=== PATIENT | female | born 1995 ===

== ENCOUNTER 2016-07-14 21:31 | Observation (INO) | payer MEDICAID, OTHER ==
[2016-07-14 21:42] VITALS: BMI 28.3
[2016-07-14] MEDS ORDERED: Sodium Chloride 0.9% 1,000 ML IV STA (21:57)
[2016-07-14 22:04] LABS: ADD MANUAL DIFF? NO
[2016-07-14 22:11] LABS: BASO # 0.06 K/mm3 (0.0-2.0); BASO % 0.5 % (0.0-3.0); EOS # 0.2 (0.0-0.7); EOS % 1.4 % (1.5-5.0); GRAN # 8.37 (1.4-6.5); GRAN % 62.9 % (50.0-68.0); LYMPH # 3.7 (1.2-3.4); LYMPH % 27.9 % (22.0-35.0); MEAN CELL VOLUME 86.4 fL (80.0-105.0); MEAN CORPUSCULAR HGB CONC 34.7 g/dl (31.0-37.0); MEAN PLATELET VOLUME 11.6 fl (7.0-11.0); MONO % 7.3 % (1.0-6.0); PLATELET COUNT 194 10^3/uL (120.0-450.0); RED CELL DISTRIBUTION WIDTH 13.1 % (11.5-14.5); WHITE BLOOD COUNT 13.3 10^3/ul (4.5-11.0)
[2016-07-14 22:17] LABS: ALB/GLOB RATIO 1.1 (1.1-1.8); ALKALINE PHOSPHATASE 52 U/L (38-133); ALT/SGPT 52 U/L (7-56); AST/SGOT 38 U/L (15-39); BILIRUBIN,TOTAL 0.5 mg/dL (0.2-1.3); BLOOD UREA NITROGEN 15 mg/dL (7-21); CARBON DIOXIDE 24 mmol/L (21-33); CHLORIDE 105 mmol/L (98-107); GFR AFRICAN-AMERICAN > 60; GLUCOSE,RANDOM 100 mg/dL (70-110); LIPASE 160 U/L (23-300); POTASSIUM 3.5 mmol/L (3.6-5.0); SODIUM 138 mmol/L (132-148); TOTAL PROTEIN 7.5 g/dL (5.8-8.3)
[2016-07-14 22:18] LABS: INR 0.97 (0.93-1.08); PARTIAL THROMBOPLASTIN TIME 26.1 Seconds (23.7-30.8)
--- NOTE | 2016-07-14 22:18 | ED PDOC ---
Arrival/HPI - General Chief Complaint: Syncope Time Seen by Provider: 07/14/16 21:38 Historian: Patient, Partner - History of Present Illness Narrative History of Present Illness (Text): 07/14/16 22:11 Alma Johns is a 20 year old female, with a history of asthma, presents to the emergency department for evaluation following a syncopal episode prior to arrival. States [place] was in the park when she vomited and passed out while walking to the car. Patient fell down on grass and denies any trauma due to fall. Patient states she had abdominal pain throughout the day which was associated with 4 bouts of vomiting. Also complains of a headache. States she experienced similar symptoms about 3 years prior, but was not evaluated at that time. Denies fever, chills, chest pain, difficulty breathing, back pain, neck pain, urinary symptoms, or any other complaints at this time. Time/Duration: Prior to Arrival Symptom Onset: Sudden Symptom Course: Improving Activities at Onset: Light Context: Other (park ) Past Medical History - Provider Review Nursing Documentation Reviewed: Yes - Past History Past History: No Previous - Infectious Disease Hx of Infectious Diseases: None - Tetanus Immunization Tetanus Immunization: Unknown - Pulmonary Hx Asthma: Yes - Neurological Hx Syncope: Yes - Psychiatric Hx Depression: No Hx Emotional Abuse: No Hx Physical Abuse: No Hx Substance Use: No - Past Surgical History Past Surgical History: No Previous - Anesthesia Hx Anesthesia: No - Suicidal Assessment Feels Threatened In Home Enviroment: No Family/Social History - Physician Review Nursing Documentation Reviewed: Yes Family/Social History: No Known Family HX Smoking Status: Never Smoked Hx Alcohol Use: No Hx Substance Use: No Hx Substance Use Treatment: No Allergies/Home Meds Allergies/Adverse Reactions: Allergies No Known Allergies Allergy (Verified 07/14/16 21:47) Review of Systems - Physician Review All systems were reviewed & negative as marked: Yes - Review of Systems Constitutional: Normal. absent: Fatigue, Fevers Respiratory: Normal. absent: SOB, Cough Cardiovascular: Syncope. absent: Chest Pain Gastrointestinal: Abdominal Pain, Nausea, Vomiting. absent: Diarrhea Neurological: Headache Psychiatric: Normal Physical Exam Vital Signs Reviewed: Yes Vital Signs Temp Pulse Resp BP Pulse Ox 07/15/16 04:00 80 17 105/73 100 07/15/16 03:00 80 16 96/57 L 98 07/15/16 02:00 74 16 100/54 L 99 07/15/16 00:00 98.4 F 88 18 114/70 100 07/14/16 21:54 98.9 F 07/14/16 21:42 83 17 129/85 98 Temperature: Afebrile Blood Pressure: Normal Pulse: Regular Respiratory Rate: Normal Appearance: Positive for: Well-Appearing, Non-Toxic, Comfortable Pain Distress: None Mental Status: Positive for: Alert and Oriented X 3 - Systems Exam Head: Present: Atraumatic, Normocephalic Pupils: Present: PERRL Conjunctiva: Present: Normal Respiratory/Chest: Present: Clear to Auscultation, Good Air Exchange. No: Respiratory Distress, Accessory Muscle Use Cardiovascular: Present: Regular Rate and Rhythm, Normal S1, S2. No: Murmurs Abdomen: Present: Tenderness, Normal Bowel Sounds. No: Distention, Peritoneal Signs, Rebound, Guarding Upper Extremity: Present: Normal Inspection. No: Cyanosis, Edema Lower Extremity: Present: Normal Inspection. No: Edema Neurological: Present: GCS=15, CN II-XII Intact, Speech Normal, Motor Func Grossly Intact, Normal Sensory Function Skin: Present: Warm, Dry, Normal Color. No: Rashes Psychiatric: Present: Alert, Oriented x 3, Normal Insight, Normal Concentration Medical Decision Making ED Course and Treatment: 07/14/16 22:19 Impression: A 20 year old female who presents to the emergency department following a syncopal episode prior to arrival. Patient also complains of abdominal pain. Plan: -- Labs, lipase -- IV fluids -- Zofran -- HCG -- Urinalysis -- Reassess and disposition Progress Notes: EKG interpreted by me: NSR @84 bpm. Normal [place]. Normal Interval. 07/15/16 00:03 EXAM: CT Head Without Intravenous Contrast FINDINGS: Brain: No acute intracranial hemorrhage. No significant white matter disease. No edema. Ventricles: No significant ventriculomegaly. Bones: No acute displaced fracture. Sinuses: Mucoperiosteal thickening within the bilateral ethmoid sinuses. Mastoid air cells: Unremarkable as visualized. No mastoid effusion. IMPRESSION: No acute intracranial hemorrhage, or suspicious mass effect. Inflammatory sinus disease. 07/15/16 01:59 EXAM: CT Abdomen and Pelvis With Intravenous Contrast FINDINGS: Lower thorax: The bilateral lung bases are clear. ABDOMEN: Liver: No acute findings. Gallbladder and bile ducts: The gallbladder is decompressed. No calcified stones. No significant intra- or extrahepatic biliary ductal dilation. Pancreas: Enhances homogeneously. No ductal dilation. No discrete mass. Spleen: No acute findings. Adrenals: No acute findings. Kidneys and ureters: No acute findings. No hydronephrosis or renal calculi. No discrete solid mass. PELVIS: Bladder: No acute findings. Reproductive: An involuting 2.5 cm cyst is identified within the right ovary, with trace surrounding free fluid. Appendix: The appendix is of normal-caliber, and proximally contains punctate foci of air. A small amount of inflammatory changes identified within the right lower quadrant, adjacent to a normal appendix. ABDOMEN and PELVIS: Stomach and bowel: No obstruction. No mucosal thickening. Peritoneum: No significant fluid collection. No free air. Lymph nodes: No pathologically enlarged lymph nodes. Vasculature: Unremarkable. Bones: No acute fracture. IMPRESSION: Trace inflammatory change within the right lower quadrant, adjacent to a normal caliber appendix. Involuting 2.5 cm right ovarian cyst, for which dedicated ultrasound may be performed for confirmation 07/15/16 03:46 Case discussed with grace Qureshi md, who is aware and agrees with the plan to admit patient to [facility] for abdominal pain. Accepts patient under hospitalist service. - Lab Interpretations Lab Results: 07/14/16 21:55 07/14/16 21:55 Lab Results 07/14/16 22:25: Urine Color Yellow, Urine Appearance Clear, Urine pH 6.5, Ur Specific [facility] 1.020, Urine Protein Trace H, Urine Glucose (UA) Negative, Urine Ketones Negative, Urine Blood Negative, Urine Nitrate Negative, Urine Bilirubin Negative, Urine Urobilinogen 1.0 H, Ur Leukocyte Esterase Negative, Urine RBC 0 - 2, Urine WBC Negative, Ur Epithelial Cells 1 - 3, Urine Bacteria Small, Urine HCG, Qual Negative 07/14/16 21:55: Sodium 138, Potassium 3.5 L, Chloride 105, Carbon Dioxide 24, Anion Gap 13, BUN 15, Creatinine 0.7, Est GFR ( Amer) > 60, Est GFR (Non- Af Amer) > 60, Random Glucose 100, Calcium 9.0, Total Bilirubin 0.5, AST 38, ALT 52, Alkaline Phosphatase 52, Total Protein 7.5, Albumin 3.9, Globulin 3.6, Albumin/Globulin Ratio 1.1, Lipase 160 07/14/16 21:55: PT 10.5, INR 0.97, APTT 26.1 07/14/16 21:55: WBC 13.3 H, RBC 4.40, Hgb 13.2, Hct 38.0, MCV 86.4, MCH 30.0, MCHC 34.7, RDW 13.1, Plt Count 194, MPV 11.6 H, Gran % 62.9, Lymph % (Auto) 27.9 , [place] % (Auto) 7.3 H, Eos % (Auto) 1.4 L, Baso % (Auto) 0.5, Gran # 8.37 H, Lymph # 3.7 H, [place] # 1.0 H, Eos # 0.2, Baso # 0.06 I have reviewed the lab results: Yes - RAD Interpretation Radiology Orders: 07/14/16 22:36 HEAD W/O CONTRAST [CT] Stat 07/14/16 22:38 ABD & PELVIS IV CONTRAST ONLY [CT] Stat 07/14/16 23:57 TRANSVAGINAL [US] Stat Senior Management Consultant: Radiologist - Medication Orders Current Medication Orders: Acetaminophen (Tylenol 325mg Tab) 650 mg PO Q6 PRN PRN Reason: Pain, Mild (1-3) Last Admin: 07/15/16 15:10 Dose: 650 mg Re-Assess: CASH Pain/Vitals Document 07/15/16 16:10 EP (Rec: 07/15/16 16:34 EP [id number]) Pain Reassessment Is This A Pain ReAssessment? Yes Sleep Is patient sleeping during reassessment? No Presence of Pain Presence of Pain No Enoxaparin Sodium (Lovenox) 40 mg SC DAILY LATONYA PRN Reason: Protocol Last Admin: 07/16/16 10:16 Dose: 40 mg Famotidine (Pepcid) 20 mg PO BID [facility] Last Admin: 07/16/16 10:16 Dose: 20 mg Ceftriaxone Sodium (Rocephin 1 Gram Ivpb) 1 gm in 100 mls @ 100 mls/hr IVPB DAILY [facility] PRN Reason: Protocol Last Admin: 07/16/16 10:17 Dose: 100 mls/hr Sodium Chloride (Sodium Chloride 0.9%) 1,000 mls @ 125 mls/hr IV .Q8H [facility] Last Admin: 07/16/16 10:34 Dose: 125 mls/hr Doxycycline Hyclate 100 mg/ (Sodium Chloride) 100 mls @ 100 mls/hr IVPB Q12 LATONYA PRN Reason: Protocol Last Admin: 07/16/16 12:15 Dose: 100 mls/hr Ibuprofen (Motrin Tab) 400 mg PO Q6 PRN PRN Reason: Fever >100.4 F Last Admin: 07/15/16 21:21 Dose: 400 mg Re-Assess: [facility] Pain/Vitals Document 07/15/16 22:21 MJ (Rec: 07/16/16 08:04 [id number]) Pain Reassessment Is This A Pain ReAssessment? No Sleep Is patient sleeping during reassessment? Yes Ketorolac Tromethamine (Toradol) 30 mg IVP Q6H [facility] Stop: 07/17/16 00:46 Last Admin: 07/16/16 14:14 Dose: 30 mg Re-Assess: [facility] Pain Assessment Document 07/16/16 15:14 NB (Rec: 07/16/16 16:48 NB [id number]) Pain Reassessment Is this a pain reassessment? Yes Sleep Is patient sleeping during reassessment? No Presence of Pain Presence of Pain Yes Pain Scale Used Pain Scale Used Numeric Location Left, Right or Bilateral Right Upper or Lower Lower Pain Location Body Site Abdomen Description Description Constant Intensity of Pain at present 10 Pain Behavior Facial Grimacing Aggravating Factors Changing Position Alleviating Factors/Management Medication Techniques Alleviating Factors Medication Lorazepam (Ativan) 0.5 mg IVP Q6H PRN; Protocol PRN Reason: Anxiety Ondansetron HCl (Zofran Inj) 4 mg IVP Q4 [facility] Last Admin: 07/16/16 21:01 Dose: 4 mg Discontinued Medications Doxycycline Hyclate (Doryx) 100 mg PO Q12 LATONYA PRN Reason: Protocol Last Admin: 07/15/16 10:16 Dose: Not Given Non-Admin Reason: Patient Refused Sodium Chloride (Sodium Chloride 0.9%) 1,000 mls @ 100 mls/hr IV .Q10H STA Stop: 07/15/16 07:56 Last Admin: 07/14/16 22:01 Dose: 100 mls/hr Sodium Chloride (Sodium Chloride 0.9%) 1,000 mls @ 110 mls/hr IV .Q9H6M STA Stop: 07/15/16 07:02 Last Admin: 07/15/16 06:55 Dose: 110 mls/hr Iohexol (Omnipaque 350 100 Ml) Confirm Administered Dose 350 mg .ROUTE .STK-MED ONE Stop: 07/14/16 22:53 Ketorolac Tromethamine (Toradol) 30 mg IVP ONCE ONE Stop: 07/14/16 23:55 Last Admin: 07/14/16 23:56 Dose: 30 mg Ketorolac Tromethamine (Toradol) Confirm Administered Dose 30 mg .ROUTE .STK- MED ONE Stop: 07/14/16 23:58 Last Admin: 07/14/16 23:59 Dose: Morphine Sulfate (Morphine) 4 mg IVP Q4 PRN PRN Reason: Pain, moderate (4-7) Last Admin: 07/15/16 04:48 Dose: 4 mg Re-Assess: MAR Pain Assessment Document 07/15/16 05:48 STOCP (Rec: 07/15/16 06:55 [id number] Pain Reassessment Is this a pain reassessment? Yes Sleep Is patient sleeping during reassessment? No Presence of Pain Presence of Pain No Ondansetron HCl (Zofran Inj) 4 mg IVP STAT STA Stop: 07/14/16 21:59 Last Admin: 07/14/16 22:33 Dose: 4 mg Ondansetron HCl (Zofran Inj) 4 mg IVP STAT STA Stop: 07/15/16 00:01 Last Admin: 07/15/16 00:05 Dose: 4 mg Ondansetron HCl (Zofran Inj) 4 mg IVP Q6 PRN PRN Reason: Nausea/Vomiting Last Admin: 07/15/16 05:20 Dose: 4 mg Ondansetron HCl (Zofran Inj) 4 mg IVP Q4 PRN PRN Reason: Nausea/Vomiting Last Admin: 07/16/16 12:46 Dose: 4 mg Potassium Chloride (K-Dur 20 Meq Er Tab) 20 meq PO ONCE ONE Stop: 07/15/16 03:25 Last Admin: 07/15/16 03:47 Dose: 20 meq - Scribe Statement The provider has reviewed the documentation as recorded by the Janet Hall Provider Attestation: All medical record entries made by the Janet were at my direction and personally dictated by me. I have reviewed the chart and agree that the record accurately reflects my personal performance of the history, physical exam, medical decision making, and the department course for this patient. I have also personally directed, reviewed, and agree with the discharge instructions and disposition. Disposition/Present on Arrival - Present on Arrival Any Indicators Present on Arrival: No History of DVT/PE: No History of Uncontrolled Diabetes: No Urinary Catheter: No History of Decub. Ulcer: No History Surgical Site Infection Following: None - Disposition Have Diagnosis and Disposition been Completed?: Yes Diagnosis: Abdominal pain Disposition: HOSPITALIZED Disposition Time: 03:45 Condition: GOOD
[2016-07-14 22:42] LABS: PH,URINE 6.5 (4.7-8.0); URINE BILIRUBIN NEGATIVE (NEGATIVE); URINE BLOOD NEGATIVE (NEGATIVE); URINE GLUCOSE (UA) NEGATIVE (NEGATIVE); URINE KETONE NEGATIVE (NEGATIVE); URINE LEUKOCYTE ESTERASE NEGATIVE Leu/uL (NEGATIVE); URINE PROTEIN TRACE mg/dL (<30 mg/dL)
[2016-07-14 22:45] LABS: URINE APPEARANCE CLEAR (CLEAR); URINE COLOR YELLOW (YELLOW)
[2016-07-14] MEDS ORDERED: Iohexol 350 MG/100 ML VIAL ONE (22:52)
[2016-07-14 23:03] LABS: URINE RBC 0 - 2 /hpf (0-2); URINE WBC NEGATIVE /hpf (0-6)
[2016-07-14 23:04] LABS: URINE BACTERIA SMALL (NEG)
--- NOTE | 2016-07-14 23:35 | CT ---
EXAM: CT Head Without Intravenous Contrast CLINICAL HISTORY: 20 years old, female; Signs and symptoms; Syncope and collapse TECHNIQUE: Axial computed tomography images of the head/brain without intravenous contrast. This CT exam was performed using one or more of the following dose reduction techniques: automated exposure control, adjustment of the mA and/or kV according to patient size, and/or use of iterative reconstruction technique. COMPARISON: No relevant prior studies available. FINDINGS: Brain: No acute intracranial hemorrhage. No significant white matter disease. No edema. Ventricles: No significant ventriculomegaly. Bones: No acute displaced fracture. Sinuses: Mucoperiosteal thickening within the bilateral ethmoid sinuses. Mastoid air cells: Unremarkable as visualized. No mastoid effusion. IMPRESSION: No acute intracranial hemorrhage, or suspicious mass effect. Inflammatory sinus disease.
--- NOTE | 2016-07-14 23:54 | CT ---
EXAM: CT Abdomen and Pelvis With Intravenous Contrast CLINICAL HISTORY: 20 years old, female; Pain; Abdominal pain; Localized; Right lower quadrant (rlq); Additional info: Rlq pain TECHNIQUE: Axial computed tomography images of the abdomen and pelvis with intravenous contrast. This CT exam was performed using one or more of the following dose reduction techniques: automated exposure control, adjustment of the mA and/or kV according to patient size, and/or use of iterative reconstruction technique. Coronal and sagittal reformatted images were created and reviewed. CONTRAST: 100 mL of OMNI administered intravenously. COMPARISON: No relevant prior studies available. FINDINGS: Lower thorax: The bilateral lung bases are clear. ABDOMEN: Liver: No acute findings. Gallbladder and bile ducts: The gallbladder is decompressed. No calcified stones. No significant intra- or extrahepatic biliary ductal dilation. Pancreas: Enhances homogeneously. No ductal dilation. No discrete mass. Spleen: No acute findings. Adrenals: No acute findings. Kidneys and ureters: No acute findings. No hydronephrosis or renal calculi. No discrete solid mass. PELVIS: Bladder: No acute findings. Reproductive: An involuting 2.5 cm cyst is identified within the right ovary, with trace surrounding free fluid. Appendix: The appendix is of normal-caliber, and proximally contains punctate foci of air. A small amount of inflammatory changes identified within the right lower quadrant, adjacent to a normal appendix. ABDOMEN and PELVIS: Stomach and bowel: No obstruction. No mucosal thickening. Peritoneum: No significant fluid collection. No free air. Lymph nodes: No pathologically enlarged lymph nodes. Vasculature: Unremarkable. Bones: No acute fracture. IMPRESSION: Trace inflammatory change within the right lower quadrant, adjacent to a normal caliber appendix. Involuting 2.5 cm right ovarian cyst, for which dedicated ultrasound may be performed for confirmation.
--- NOTE | 2016-07-15 03:21 | US ---
EXAM: US Pelvis Complete, Transabdominal US Pelvis, Transvaginal CLINICAL HISTORY: 20 years old, female; Pain; Pelvic pain; Additional info: Rlq pain TECHNIQUE: Real-time transabdominal and transvaginal pelvic ultrasound (complete) with image documentation. Transvaginal imaging was used for better evaluation of the endometrium and adnexa. EXAM DATE/TIME: Exam ordered 07/14/2016 11:57 PM COMPARISON: CT - ABD PELVIS IV CONTRAST ONLY 07/14/2016 11:10:47 PM FINDINGS: Uterus/cervix: The uterus measures 7.3 x 4.1 x 5.6 cm. Endometrium is 12 mm. No myometrial mass. Right ovary: The right ovary measures 4.0 x 3.0 x 3.6 cm. Noted that approximately 2-1/2 hours prior to this study there was a CT of the abdomen and pelvis, which showed inflammatory change in the right lower quadrant and a 2.5 cm right ovarian cyst is described on that CT, these images do not clearly demonstrate that right ovarian cyst which however was clearly visualized on the CT. It is favored that series 1 image 18 this is a poorly seen complex thickwalled cystic finding in the right ovary with some peripheral vascularity. The right ovary otherwise contains normal follicles. Left ovary: The left ovary measures 3.3 x 2.1 x 3.3 cm. Left ovary with normal morphology and normal flow. Normal blood flow. Free fluid: Fluid is seen in the cul-de-sac. Bladder: Unremarkable as visualized. Wall is normal thickness for degree of distention. Other findings: Last menstrual period is described as a pro 2016. IMPRESSION: There is no intrauterine gestation. There is moderate fluid in the cul-de-sac. No findings of ovarian torsion. Findings in the right ovary are favored to represent a complex cyst. Correlation with beta hCG is strongly recommended, cannot exclude either an early intrauterine or an ectopic on the basis of these images. If clinically warranted, serial beta hCG and or followup imaging is recommended.
[2016-07-15] MEDS ORDERED: Potassium Chloride 20 mEq ER Tab PO ONE (03:24)
[2016-07-15] MEDS ORDERED: Morphine 4 mg/ml ISec IVP PRN (04:29)
--- NOTE | 2016-07-15 04:52 | CP.PCM.HP ---
Addendum entered and electronically signed by Yancy Arora DO 07/15/16 06:35: Pt admits to recent travel to [facility] with URI symptoms afterwards. Original Note: <Yancy Arora - Last Filed: 07/15/16 05:26> History of Present Illness - History of Present Illness History of Present Illness: Internal medicine H & P for Hospitalist service- Yancy Arora, PGY-1 Pt S & E at bedside. 20F w/PMH sig for asthma admitted for abdominal pain x 4 days. Pain started on Thursday night, 4 days [employer], sudden onset. Pt states she is due for her menses and attributed pain to menstrual pain. Pain started out as epigastric w/radiation to lower quadrants B/L, intermittent since onset, moderate in severity. Pt tried Ibuprofen to alleviate pain- minimally alleviating. Today pt report 4 episodes of emesis- pink w/food stuff. Pain became constant on day of admission. Pt reports running errands throughout the day without pain medications taken on day [employer]. Pt reports collapsing while at a park, "legs gave out from under her", continues with numbness/pins/needles sensation in feet B/L. Had 1 episodes of transient substernal CP. Admits to subjective fevers, chills, nausea, SOB, CP, spots and change in vision color (orange), decreased appetite, cough, sore throat, rhinorrhea, headaches. Denies blurry vision, palpitations, lower extremity edema. PMH: Asthma PSH: Denies All: NKA SH: Denies ETOH, tobacco, or illicit drug use; in monogamous sexual relationship with one male PMD: Kaity Portillo LMP: 05/24/16 Home meds: albuterol inhaler, hormonal control Present on Admission - Present on Admission Any Indicators Present on Admission: No History of DVT/PE: No History of Uncontrolled Diabetes: No Urinary Catheter: No Decubitus Ulcer Present: No Review of Systems - Review of Systems All systems: reviewed and no additional remarkable complaints except - Constitutional Constitutional: Chills, Fever, Headache. absent: Increased Appetite - EENT Eyes: Change in Vision, Spots in Vision. absent: Blurred Vision Nose/Mouth/Throat: Nasal Congestion, Nasal Discharge, Sore Throat - Cardiovascular Cardiovascular: Chest Pain, Diaphoresis. absent: Leg Edema, Palpitations - Respiratory Respiratory: Cough, Chest Congestion - Gastrointestinal Gastrointestinal: Abdominal Pain, Diarrhea, Hematemesis, Nausea, Vomiting. absent: Constipation, Hematochezia, Melena - Genitourinary Genitourinary: absent: Dysuria, Hematuria - Musculoskeletal Musculoskeletal: Numbness, Tingling - Integumentary Integumentary: absent: Rash - Neurological Neurological: Numbness, Tingling Past Patient History - Infectious Disease Hx of Infectious Diseases: None - Tetanus Immunizations Tetanus Immunization: Unknown - Past Social History Smoking Status: Never Smoked - PULMONARY Hx Asthma: Yes - NEUROLOGICAL Hx Syncope: Yes - PSYCHIATRIC Hx Depression: No Hx Emotional Abuse: No Hx Physical Abuse: No Hx Substance Use: No - SURGICAL HISTORY Hx Surgeries: No - ANESTHESIA Hx Anesthesia: No Meds Allergies/Adverse Reactions: Allergies Allergy/AdvReac Type Severity Reaction Status Date / Time No Known Allergies Allergy Verified 07/14/16 21:47 Physical Exam - Constitutional Appears: Non-toxic, No Acute Distress - Head Exam Head Exam: ATRAUMATIC, NORMAL INSPECTION, NORMOCEPHALIC - Eye Exam Eye Exam: EOMI, Normal appearance, PERRL Pupil Exam: NORMAL ACCOMODATION, PERRL - ENT Exam ENT Exam: Mucous Membranes Moist, Normal Exam - Neck Exam Neck exam: Positive for: Full Rom, Normal Inspection. Negative for: Tenderness - Respiratory Exam Respiratory Exam: Clear to Auscultation Bilateral, NORMAL BREATHING PATTERN. absent: Rales, Rhonchi, Wheezes - Cardiovascular Exam Cardiovascular Exam: REGULAR RHYTHM, +S1, +S2 - GI/Abdominal Exam GI & Abdominal Exam: Guarding, Hypoactive Bowel Sounds, Soft, Tenderness ( diffuse). absent: Distended, Firm, Rebound, Rigid - Exam Bimanual exam: absent: NORMAL BIMANUAL EXAM, Uterine Enlargement, Uterine Tenderness Additional comments: vaginsmus upon bimanual exam - Extremities Exam Extremities exam: Positive for: full ROM, normal inspection. Negative for: pedal edema, tenderness - Neurological Exam Neurological exam: Alert, CN II-XII Intact, Oriented x3 - Psychiatric Exam Psychiatric exam: Normal Affect, Normal Mood - Skin Skin Exam: Dry, Intact, Normal Color, Warm Results - Vital Signs Recent Vital Signs: Last Vital Signs Temp 98.4 F 07/15/16 00:00 Pulse 80 07/15/16 04:00 Resp 17 07/15/16 04:00 BP 105/73 07/15/16 04:00 Pulse Ox 100 07/15/16 04:00 - Labs Result Diagrams: 07/14/16 21:55 07/14/16 21:55 Labs: Laboratory Results - last 24 hr 07/14/16 07/14/16 07/14/16 21:55 21:55 21:55 WBC 13.3 H RBC 4.40 Hgb 13.2 Hct 38.0 MCV 86.4 MCH 30.0 MCHC 34.7 RDW 13.1 Plt Count 194 MPV 11.6 H Gran % 62.9 Lymph % (Auto) 27.9 Karnes % (Auto) 7.3 H Eos % (Auto) 1.4 L Baso % (Auto) 0.5 Gran # 8.37 H Lymph # 3.7 H Karnes # 1.0 H Eos # 0.2 Baso # 0.06 PT 10.5 INR 0.97 APTT 26.1 Sodium 138 Potassium 3.5 L Chloride 105 Carbon Dioxide 24 Anion Gap 13 BUN 15 Creatinine 0.7 Est GFR ( Amer) > 60 Est GFR (Non-Af Amer) > 60 Random Glucose 100 Calcium 9.0 Total Bilirubin 0.5 AST 38 ALT 52 Alkaline Phosphatase 52 Total Protein 7.5 Albumin 3.9 Globulin 3.6 Albumin/Globulin Ratio 1.1 Lipase 160 Urine Color Urine Appearance Urine pH Ur Specific [place] Urine Protein Urine Glucose (UA) Urine Ketones Urine Blood Urine Nitrate Urine Bilirubin Urine Urobilinogen Ur Leukocyte Esterase Urine RBC Urine WBC Ur Epithelial Cells Urine Bacteria Urine HCG, Qual 07/14/16 22:25 WBC RBC Hgb Hct MCV MCH MCHC RDW Plt Count MPV Gran % Lymph % (Auto) Karn[place] % (Auto) Eos % (Auto) Baso % (Auto) Gran # Lymph # [place] # Eos # Baso # PT INR APTT Sodium Potassium Chloride Carbon Dioxide Anion Gap BUN Creatinine Est GFR ( Amer) Est GFR (Non-Af Amer) Random Glucose Calcium Total Bilirubin AST ALT Alkaline Phosphatase Total Protein Albumin Globulin Albumin/Globulin Ratio Lipase Urine Color Yellow Urine Appearance Clear Urine pH 6.5 Ur Specific [place] 1.020 Urine Protein Trace H Urine Glucose (UA) Negative Urine Ketones Negative Urine Blood Negative Urine Nitrate Negative Urine Bilirubin Negative Urine Urobilinogen 1.0 H Ur Leukocyte Esterase Negative Urine RBC 0 - 2 Urine WBC Negative Ur Epithelial Cells 1 - 3 Urine Bacteria Small Urine HCG, Qual Negative Assessment & Plan - Assessment and Plan (Free Text) Assessment: 20 yo F w/PMH sig for asthma admitted for abdominal pain x 4 days, emesis x 4 and collapse in park one day [employer]. Pt currently stable. Plan: RLQ ab pain Started initially w/URI symptoms & diarrhea Leukocytosis 13.3 Afebrile Motrin 400mg Q6H PRN F>100.4 NS@100 test neg Tylenol 650mg Q6H PRN Morphine 2mg Q6H PRN Zofran 4mg Q6H CLD Ab U/S- There is no intrauterine gestation. There is moderate fluid in the cul- de-sac. No findings of ovarian torsion. Findings in the right ovary are favored to represent a complex cyst. Correlation with beta hCG is strongly recommended, cannot exclude either an early intrauterine or an ectopic on the basis of these images. If clinically warranted, serial beta hCG and or followup imaging is recommended. CT ab/pelvis w/Trace inflammatory change within the right lower quadrant, adjacent to a normal caliber appendix. Lipase 160 Rocephin 1gm Q24H FU Blood cx FU Urine cx Surgery consult- [facility] consult- Naa Hypokalemia K 3.5 Given 20mEq KCl Monitor s/p collapse in park NSR @84 bpm. Normal [place]. Normal Interval. CT brain w/No acute intracranial hemorrhage, or suspicious mass effect. Inflammatory sinus disease. Monitor GI/DVT ppx SCDS Lovenox Pepcid Dispo Admit to Med Surg VS Q4H Activity as isabel BURT attending - Date & Time Date: 07/15/16 Time: 04:50 Decision To Admit - Pt Status Changed To: Hospital Disposition Of: Observation - . Bed Request Type: Med/Surg Admitting Physician: Val Borges <Val Borges - Last Filed: 07/25/16 22:29> Results - Vital Signs Recent Vital Signs: Last Vital Signs Temp 98.6 F 07/17/16 16:00 Pulse 63 07/17/16 16:00 Resp 20 07/17/16 16:00 BP 107/63 07/17/16 16:00 Pulse Ox 98 07/17/16 16:00 - Labs Result Diagrams: 07/17/16 06:00 07/17/16 06:00
--- NOTE | 2016-07-15 06:12 | CP.PCM.CON ---
History of Present Illness - History of Present Illness History of Present Illness: 20F w/PMHx of asthma presented to the ED w/ abdominal pain. Patient reports pain began Jackson night, she states pain began along her epigastric region and then began radiating towards her lower abdominal region. Patient reports 2 weeks ago she was in [facility] where she was sick, reported fevers and diarrhea. Once she came back to the [facility] patient reports she was doing better, however her boyfriend became sick with fevers and chills. She states her boyfriend went to the hospital and he was told he had food poisoning, this occurred last week on Thursday. Pt states she is due for her menses and she attributed initial pain to menstrual pain. Pt reports taking Ibuprofen which did not alleviate pain. Patient admits to 4 bouts of emesis w/ food content. Patient mention being at the park with her boyfriend yesterday afternoon and as they were walking back to the car patient reports her legs giving out. She states her boyfriend broke her fall and denies losing consciousness. However, she states her legs got weak from how severe the lower abdominal pain was. Admits to subjective fevers, chills, nausea, decreased appetite. PMH: Asthma PSH: Denies All: NKA SH: Denies ETOH, tobacco, or illicit drug use; in monogamous sexual relationship with one male PMD: Kaity Portillo LMP: 06/24/16 Home meds: albuterol inhaler, hormonal control Review of Systems - Review of Systems Review of Systems: 12 pt ROS carried out, unremarkable, except as stated in HPI Past Patient History - Infectious Disease Hx of Infectious Diseases: None - Tetanus Immunizations Tetanus Immunization: Unknown - Past Social History Smoking Status: Never Smoked - CARDIAC Hx Cardiac Disorders: No - PULMONARY Hx Respiratory Disorders: Yes Hx Asthma: Yes - NEUROLOGICAL Hx Neurological Disorder: No - HEENT Hx HEENT Problems: No - RENAL Hx Chronic Kidney Disease: No - ENDOCRINE/METABOLIC Hx Endocrine Disorders: No - HEMATOLOGICAL/ONCOLOGICAL Hx Blood Disorders: No - INTEGUMENTARY Hx Dermatological Problems: No - MUSCULOSKELETAL/RHEUMATOLOGICAL Hx Musculoskeletal Disorders: Yes Hx Falls: Yes (07/14/16) - GASTROINTESTINAL Hx Gastrointestinal Disorders: No - GENITOURINARY/GYNECOLOGICAL Hx Genitourinary Disorders: No - PSYCHIATRIC Hx Psychophysiologic Disorder: No - SURGICAL HISTORY Hx Surgeries: No - ANESTHESIA Hx Anesthesia: No Meds Allergies/Adverse Reactions: Allergies Allergy/AdvReac Type Severity Reaction Status Date / Time No Known Allergies Allergy Verified 07/14/16 21:47 - Medications Medications: Current Medications Acetaminophen (Tylenol 325mg Tab) 650 mg PO Q6 PRN PRN Reason: Pain, Mild (1-3) Enoxaparin Sodium (Lovenox) 40 mg SC DAILY [facility] PRN Reason: Protocol Famotidine (Pepcid) 20 mg PO BID [facility] Sodium Chloride (Sodium Chloride 0.9%) 1,000 mls @ 100 mls/hr IV .Q10H [facility] Stop: 07/15/16 07:56 Last Admin: 07/14/16 22:01 Dose: 100 mls/hr Ceftriaxone Sodium (Rocephin 1 Gram Ivpb) 1 gm in 100 mls @ 100 mls/hr IVPB DAILY [facility] PRN Reason: Protocol Ibuprofen (Motrin Tab) 400 mg PO Q6 PRN PRN Reason: Fever >100.4 F Morphine Sulfate (Morphine) 4 mg IVP Q4 PRN PRN Reason: Pain, moderate (4-7) Last Admin: 07/15/16 04:48 Dose: 4 mg Ondansetron HCl (Zofran Inj) 4 mg IVP Q6 PRN PRN Reason: Nausea/Vomiting Last Admin: 07/15/16 05:20 Dose: 4 mg Physical Exam - Constitutional Appears: Non-toxic, No Acute Distress - Head Exam Head Exam: NORMOCEPHALIC - Eye Exam Eye Exam: Normal appearance - ENT Exam ENT Exam: Mucous Membranes Moist - Respiratory Exam Respiratory Exam: NORMAL BREATHING PATTERN. absent: Accessory Muscle Use - Cardiovascular Exam Cardiovascular Exam: +S1, +S2 - GI/Abdominal Exam GI & Abdominal Exam: Soft, Tenderness - Extremities Exam Extremities exam: Negative for: pedal edema - Neurological Exam Neurological exam: Alert, Oriented x3 - Psychiatric Exam Psychiatric exam: Normal Mood - Skin Skin Exam: Intact, Warm Results - Vital Signs Recent Vital Signs: Last Vital Signs Temp 98.4 F 07/15/16 00:00 Pulse 80 07/15/16 05:25 Resp 18 07/15/16 05:25 BP 105/73 07/15/16 05:25 Pulse Ox 100 07/15/16 04:00 - Labs Result Diagrams: 07/15/16 06:15 07/15/16 06:15 Assessment & Plan - Assessment and Plan (Free Text) Assessment: 20 F w/ complaints of lower abdominal pain with normal caliber appendix and a 2.5cm Right ovarian cyst, ?rupture -Toradol Q6H prn for pain -IVF -DVT/GI ppx -Monitor abdomen -Gynecology recs appreciated -D/w Dr. Solis
[2016-07-15] MEDS ORDERED: Sodium Chloride 0.9% 1,000 ML IV STA (06:43)
[2016-07-15 06:49] LABS: ADD MANUAL DIFF? NO
[2016-07-15 06:53] LABS: BASO # 0.02 K/mm3 (0.0-2.0); BASO % 0.2 % (0.0-3.0); EOS # 0.2 (0.0-0.7); EOS % 1.5 % (1.5-5.0); GRAN # 8.26 (1.4-6.5); GRAN % 70.8 % (50.0-68.0); HEMATOCRIT 35.8 % (36.0-48.0); LYMPH # 2.4 (1.2-3.4); LYMPH % 20.5 % (22.0-35.0); MEAN CELL VOLUME 86.1 fL (80.0-105.0); MEAN CORPUSCULAR HEMOGLOBIN 29.6 pg (25.0-35.0); MEAN CORPUSCULAR HGB CONC 34.4 g/dl (31.0-37.0); MEAN PLATELET VOLUME 11.1 fl (7.0-11.0); MONO # 0.8 (0.1-0.6); PLATELET COUNT 162 10^3/uL (120.0-450.0); RED CELL DISTRIBUTION WIDTH 13.2 % (11.5-14.5); WHITE BLOOD COUNT 11.7 10^3/ul (4.5-11.0)
[2016-07-15 07:01] LABS: ALKALINE PHOSPHATASE 44 U/L (38-133); ALT/SGPT 52 U/L (7-56); AST/SGOT 27 U/L (15-39); BILIRUBIN,TOTAL 1.1 mg/dL (0.2-1.3); BLOOD UREA NITROGEN 11 mg/dL (7-21); CALCIUM 8.5 mg/dL (8.4-10.5); CARBON DIOXIDE 22 mmol/L (21-33); CHLORIDE 109 mmol/L (98-107); GFR AFRICAN-AMERICAN > 60; GLUCOSE,RANDOM 91 mg/dL (70-110); POTASSIUM 4.3 mmol/L (3.6-5.0); SODIUM 138 mmol/L (132-148); TOTAL PROTEIN 6.8 g/dL (5.8-8.3)
--- NOTE | 2016-07-15 08:04 | CP.PCM.PN ---
<Leno Chaudhari - Last Filed: 07/15/16 07:54> Subjective - Date & Time of Evaluation Date of Evaluation: 07/15/16 Time of Evaluation: 07:54 - Subjective Subjective: Patient seen and evaluated at bedside. She continues to complain of right sided/ right lower abdominal pain. She is nauseous with limited appetite. Denies n/v/ d. Objective - Vital Signs/Intake and Output Vital Signs (last 24 hours): Temp Pulse Resp BP Pulse Ox 98.4 F 80 18 105/73 100 07/15/16 00:00 07/15/16 05:25 07/15/16 05:25 07/15/16 05:25 07/15/16 04:00 - Medications Medications: Current Medications Acetaminophen (Tylenol 325mg Tab) 650 mg PO Q6 PRN PRN Reason: Pain, Mild (1-3) Enoxaparin Sodium (Lovenox) 40 mg SC DAILY [facility] PRN Reason: Protocol Famotidine (Pepcid) 20 mg PO BID [facility] Ceftriaxone Sodium (Rocephin 1 Gram Ivpb) 1 gm in 100 mls @ 100 mls/hr IVPB DAILY [facility] PRN Reason: Protocol Ibuprofen (Motrin Tab) 400 mg PO Q6 PRN PRN Reason: Fever >100.4 F Ketorolac Tromethamine (Toradol) 30 mg IVP Q6H [facility] Stop: 07/17/16 00:46 Last Admin: 07/15/16 06:58 Dose: 30 mg Morphine Sulfate (Morphine) 4 mg IVP Q4 PRN PRN Reason: Pain, moderate (4-7) Last Admin: 07/15/16 04:48 Dose: 4 mg Ondansetron HCl (Zofran Inj) 4 mg IVP Q6 PRN PRN Reason: Nausea/Vomiting Last Admin: 07/15/16 05:20 Dose: 4 mg - Labs Labs: 07/15/16 06:15 07/15/16 06:15 PT 10.5 Seconds (9.9-11.8) 07/14/16 21:55 INR 0.97 (0.93-1.08) 07/14/16 21:55 APTT 26.1 Seconds (23.7-30.8) 07/14/16 21:55 - Constitutional Appears: Non-toxic, No Acute Distress - Head Exam Head Exam: ATRAUMATIC - Eye Exam Eye Exam: EOMI, PERRL - ENT Exam ENT Exam: Mucous Membranes Moist - Neck Exam Neck Exam: Full ROM, Normal Inspection - Respiratory Exam Respiratory Exam: Clear to Ausculation Bilateral. absent: Rales, Rhonchi, Wheezes - Cardiovascular Exam Cardiovascular Exam: REGULAR RHYTHM, +S1, +S2 - GI/Abdominal Exam GI & Abdominal Exam: Soft, Tenderness (RLQ), Normal Bowel Sounds. absent: Distended, Guarding - Extremities Exam Extremities Exam: absent: Calf Tenderness, Pedal Edema - Neurological Exam Neurological Exam: Alert, Awake, Oriented x3 - Psychiatric Exam Psychiatric exam: Normal Affect, Normal Mood - Skin Skin Exam: Normal Color, Warm Assessment and Plan - Assessment and Plan (Free Text) Assessment: 20 y/o female with hx asthma presenting with RLQ abdominal pain. CT abd/pelvis does not reveal dilation or obvious inflammation of the appendix. There is a 2.5cm right complex ovarian cyst noted on both CT and transvaginal US. Patient' s sx are likely related to ovarian etiology rather than acute appendicitis. - continue to manage pain - will advance diet this afternoon as tolerated - continue Rocephin 1gm daily - continue IVF while NPO - no acute surgery intervention at this point - will discuss with attending <Marbella [facility] - Last Filed: 09/09/16 11:11> Objective - Vital Signs/Intake and Output Vital Signs (last 24 hours): Temp Pulse Resp BP Pulse Ox 98.6 F 63 20 107/63 98 07/17/16 16:00 07/17/16 16:00 07/17/16 16:00 07/17/16 16:00 07/17/16 16:00 - Labs Labs: 07/17/16 06:00 07/17/16 06:00 PT 10.5 Seconds (9.9-11.8) 07/14/16 21:55 INR 0.97 (0.93-1.08) 07/14/16 21:55 APTT 26.1 Seconds (23.7-30.8) 07/14/16 21:55
[2016-07-15] MEDS: Enoxaparin 40 mg Syringe SC SCH (10:16)
[2016-07-15] MEDS: cefTRIAXone 1 gm 1 GM/100 ML BAG IVPB SCH (10:16)
[2016-07-15] MEDS: Sodium Chloride 0.9% 1,000 ML IV SCH ×2 (10:17→18:20)
--- NOTE | 2016-07-15 10:38 | RAD ---
HISTORY: r/o infiltraye COMPARISON: 12/27/2013 FINDINGS: LUNGS: No active pulmonary disease. PLEURA: No significant pleural effusion identified, no pneumothorax apparent. CARDIOVASCULAR: Normal. OSSEOUS STRUCTURES: No significant abnormalities. VISUALIZED UPPER ABDOMEN: Normal. OTHER FINDINGS: None. IMPRESSION: No active disease.
[2016-07-15 12:18] LABS: URINE BILIRUBIN NEGATIVE (NEGATIVE); URINE BLOOD NEGATIVE (NEGATIVE); URINE GLUCOSE (UA) NEGATIVE (NEGATIVE); URINE KETONE NEGATIVE (NEGATIVE); URINE LEUKOCYTE ESTERASE NEGATIVE Leu/uL (NEGATIVE); URINE PROTEIN NEGATIVE mg/dL (<30 mg/dL); URINE UROBILINOGEN 0.2 E.U./dL (<1 E.U./dL)
[2016-07-15 12:19] LABS: URINE APPEARANCE CLEAR (CLEAR); URINE COLOR YELLOW (YELLOW)
[2016-07-15 17:45] VITALS: RESP 20
--- NOTE | 2016-07-15 21:59 | CP.PCM.CON ---
History of Present Illness - History of Present Illness History of Present Illness: 20yo G0 LMP Jun 24 2016. Admitted for syncopal episode, vomiting and abdominal pain yesterday. She had ALEXIS prior to passing out. She also stated to other providers that the pain was also in midepigastric/substernal area. No vaginal discharge. No vaginal itching. Review of Systems - Cardiovascular Cardiovascular: absent: Chest Pain, Dyspnea - Respiratory Respiratory: absent: Dyspnea, Pain on Inspiration - Gastrointestinal Gastrointestinal: Abdominal Pain, Nausea, Vomiting. absent: Coffee Ground Emesis, Constipation, Diarrhea, Hematemesis, Loose Stools - Genitourinary Genitourinary: absent: Dysuria, Flank Pain, Urinary Frequency, Urinary Urgency - Reproductive: Female Reproductive:Female: Menses 1-7 Days, Normal Menses. absent: Abnormal Vaginal Bleeding, Vaginal Discharge, Vaginal Dryness, Vaginal Odor, Vaginal Pruritis - Menstruation Menstruation: Menses 1-7 Days. absent: Abnormal Vaginal Bleeding - Musculoskeletal Musculoskeletal: absent: Abnormal Gait Past Patient History - Infectious Disease Hx of Infectious Diseases: None - Tetanus Immunizations Tetanus Immunization: Unknown - Past Social History Smoking Status: Never Smoked Chewing Tobacco Use: No Cigar Use: No Domestic Violence: Negative - CARDIAC Hx Cardiac Disorders: No - PULMONARY Hx Respiratory Disorders: Yes (Asthma) Hx Asthma: Yes - NEUROLOGICAL Hx Neurological Disorder: No - HEENT Hx HEENT Problems: No - RENAL Hx Chronic Kidney Disease: No - ENDOCRINE/METABOLIC Hx Endocrine Disorders: No - HEMATOLOGICAL/ONCOLOGICAL Hx Blood Disorders: No - INTEGUMENTARY Hx Dermatological Problems: No - MUSCULOSKELETAL/RHEUMATOLOGICAL Hx Musculoskeletal Disorders: Yes Hx Falls: Yes (07/14/16) - GASTROINTESTINAL Hx Gastrointestinal Disorders: No - GENITOURINARY/GYNECOLOGICAL Hx Genitourinary Disorders: No Other/Comment: DIRECTOR OF PSYCHOLOGY doctors: Dr Anne/Dr Michel...last seen before her trip to [facility] a few weeks ago LMP:: 06/24/16 : 0 - PSYCHIATRIC Hx Psychophysiologic Disorder: No - SURGICAL HISTORY Hx Surgeries: No - ANESTHESIA Hx Anesthesia: No Meds Allergies/Adverse Reactions: Allergies Allergy/AdvReac Type Severity Reaction Status Date / Time No Known Allergies Allergy Verified 07/14/16 21:47 - Medications Medications: Current Medications Acetaminophen (Tylenol 325mg Tab) 650 mg PO Q6 PRN PRN Reason: Pain, Mild (1-3) Last Admin: 05/02/17 15:10 Dose: 650 mg Enoxaparin Sodium (Lovenox) 40 mg SC DAILY [facility] PRN Reason: Protocol Last Admin: 07/15/16 10:16 Dose: 40 mg Famotidine (Pepcid) 20 mg PO BID [facility] Last Admin: 07/15/16 18:20 Dose: 20 mg Ceftriaxone Sodium (Rocephin 1 Gram Ivpb) 1 gm in 100 mls @ 100 mls/hr IVPB DAILY [facility] PRN Reason: Protocol Last Admin: 07/15/16 10:16 Dose: 100 mls/hr Sodium Chloride (Sodium Chloride 0.9%) 1,000 mls @ 125 mls/hr IV .Q8H [facility] Last Admin: 07/15/16 18:20 Dose: 125 mls/hr Doxycycline Hyclate 100 mg/ (Sodium Chloride) 100 mls @ 100 mls/hr IVPB Q12 [facility] PRN Reason: Protocol Ibuprofen (Motrin Tab) 400 mg PO Q6 PRN PRN Reason: Fever >100.4 F Last Admin: 07/15/16 21:21 Dose: 400 mg Ketorolac Tromethamine (Toradol) 30 mg IVP Q6H [facility] Stop: 07/17/16 00:46 Last Admin: 07/15/16 18:20 Dose: 30 mg Ondansetron HCl (Zofran Inj) 4 mg IVP Q4 PRN PRN Reason: Nausea/Vomiting Last Admin: 07/15/16 20:24 Dose: 4 mg Physical Exam - Constitutional Appears: Non-toxic - Head Exam Head Exam: NORMAL INSPECTION - GI/Abdominal Exam GI & Abdominal Exam: Soft, Tenderness. absent: Distended, Guarding, Rebound Additional comments: midline right sided discomfort to deep palapation - Exam Additional comments: Declined exam because it was done by Dr Arora...doesn't want pelvic exam again Results - Vital Signs Recent Vital Signs: Last Vital Signs Temp 97.8 F 07/15/16 16:00 Pulse 72 07/15/16 16:00 Resp 20 07/15/16 16:00 BP 108/67 07/15/16 16:00 Pulse Ox 98 07/15/16 16:00 - Labs Result Diagrams: 07/15/16 06:15 07/15/16 06:15 Labs: Laboratory Results - last 24 hr 07/15/16 07/15/16 07/15/16 06:15 06:15 12:00 WBC 11.7 H RBC 4.16 Hgb 12.3 Hct 35.8 L MCV 86.1 MCH 29.6 MCHC 34.4 RDW 13.2 Plt Count 162 MPV 11.1 H Gran % 70.8 H Lymph % (Auto) 20.5 L [place] % (Auto) 7.0 H Eos % (Auto) 1.5 Baso % (Auto) 0.2 Gran # 8.26 H Lymph # 2.4 Armstrong # 0.8 H Eos # 0.2 Baso # 0.02 Sodium 138 Potassium 4.3 Chloride 109 H Carbon Dioxide 22 Anion Gap 11 BUN 11 Creatinine 0.7 Est GFR ( Amer) > 60 Est GFR (Non-Af Amer) > 60 Random Glucose 91 Calcium 8.5 Total Bilirubin 1.1 AST 27 ALT 52 Alkaline Phosphatase 44 Total Protein 6.8 Albumin 3.4 Globulin 3.3 Albumin/Globulin Ratio 1.0 L Urine Color Yellow Urine Appearance Clear Urine pH 6.0 Ur Specific [place] 1.020 Urine Protein Negative Urine Glucose (UA) Negative Urine Ketones Negative Urine Blood Negative Urine Nitrate Negative Urine Bilirubin Negative Urine Urobilinogen 0.2 Ur Leukocyte Esterase Negative Grp A Beta Strep Ag 07/15/16 16:00 WBC RBC Hgb Hct MCV MCH MCHC RDW Plt Count MPV Gran % Lymph % (Auto) [place] % (Auto) Eos % (Auto) Baso % (Auto) Gran # Lymph # [place] # Eos # Baso # Sodium Potassium Chloride Carbon Dioxide Anion Gap BUN Creatinine Est GFR ( Amer) Est GFR (Non-Af Amer) Random Glucose Calcium Total Bilirubin AST ALT Alkaline Phosphatase Total Protein Albumin Globulin Albumin/Globulin Ratio Urine Color Urine Appearance Urine pH Ur Specific [place] Urine Protein Urine Glucose (UA) Urine Ketones Urine Blood Urine Nitrate Urine Bilirubin Urine Urobilinogen Ur Leukocyte Esterase Grp A Beta Strep Ag Negative - Imaging and Cardiology CT scan - pelvis Status: Report reviewed by me (2.5cm ovarian cyst/some inflammatory changes around ovary) Assessment & Plan - Assessment and Plan (Free Text) Assessment: Pelvic pain ?PID vs early appendicitis Ovarian cyst (small 2.5cm) Plan: Earlier today at 8:50am, I spoke with Regulo Price and Dr Arora. If PID is initial diagnosis, start Doxycycline in addition to Rocephin. Surgery follow up. If improves, discharge home with Doxycycline 100mg BID for 2w and follow up with Regulo Anne and Marilu (PMD) - Date & Time Date: 07/15/16 Time: 21:00
--- NOTE | 2016-07-15 22:53 | CARD ---
APPROVED REPORT EKG Measurement Heart [id number] <Conclusion> Normal sinus rhythm Normal ECG
[2016-07-16 06:54] LABS: ADD MANUAL DIFF? NO
[2016-07-16 07:12] LABS: ALB/GLOB RATIO 0.9 (1.1-1.8); ALKALINE PHOSPHATASE 50 U/L (38-133); ALT/SGPT 45 U/L (7-56); AST/SGOT 24 U/L (15-39); BILIRUBIN,TOTAL 0.9 mg/dL (0.2-1.3); BLOOD UREA NITROGEN 7 mg/dL (7-21); CALCIUM 8.1 mg/dL (8.4-10.5); CARBON DIOXIDE 22 mmol/L (21-33); CHLORIDE 109 mmol/L (98-107); GFR AFRICAN-AMERICAN > 60; GLUCOSE,RANDOM 74 mg/dL (70-110); POTASSIUM 3.8 mmol/L (3.6-5.0); SODIUM 139 mmol/L (132-148); TOTAL PROTEIN 6.6 g/dL (5.8-8.3)
[2016-07-16 07:18] LABS: BASO # 0.03 K/mm3 (0.0-2.0); BASO % 0.3 % (0.0-3.0); EOS # 0.2 (0.0-0.7); EOS % 2.6 % (1.5-5.0); GRAN # 5.65 (1.4-6.5); GRAN % 60.1 % (50.0-68.0); HEMATOCRIT 36.2 % (36.0-48.0); LYMPH # 2.7 (1.2-3.4); LYMPH % 29.2 % (22.0-35.0); MEAN CELL VOLUME 87.4 fL (80.0-105.0); MEAN CORPUSCULAR HEMOGLOBIN 29.2 pg (25.0-35.0); MEAN CORPUSCULAR HGB CONC 33.4 g/dl (31.0-37.0); MEAN PLATELET VOLUME 12.1 fl (7.0-11.0); MONO # 0.7 (0.1-0.6); MONO % 7.8 % (1.0-6.0); PLATELET COUNT 159 10^3/uL (120.0-450.0); RED CELL DISTRIBUTION WIDTH 13.3 % (11.5-14.5); WHITE BLOOD COUNT 9.4 10^3/ul (4.5-11.0)
--- NOTE | 2016-07-16 08:01 | CP.PCM.PN ---
<Leno Chaudhari - Last Filed: 07/16/16 07:58> Subjective - Date & Time of Evaluation Date of Evaluation: 07/16/16 Time of Evaluation: 07:58 - Subjective Subjective: Patient states epigastric abdominal pain is resolved. She reports vague symptoms of lower extremity weakness and numbness which started yesterday. She has not had a BM. Remains afebrile. No acute events overnight. Objective - Vital Signs/Intake and Output Vital Signs (last 24 hours): Temp Pulse Resp BP Pulse Ox 97.8 F 72 20 108/67 98 07/15/16 16:00 07/15/16 16:00 07/15/16 16:00 07/15/16 16:00 07/15/16 16:00 Intake and Output: 07/16/16 07/16/16 06:59 18:59 Intake Total 920 Balance 920 - Medications Medications: Current Medications Acetaminophen (Tylenol 325mg Tab) 650 mg PO Q6 PRN PRN Reason: Pain, Mild (1-3) Last Admin: 07/15/16 15:10 Dose: 650 mg Enoxaparin Sodium (Lovenox) 40 mg SC DAILY [facility] PRN Reason: Protocol Last Admin: 07/15/16 10:16 Dose: 40 mg Famotidine (Pepcid) 20 mg PO BID [facility] Last Admin: 07/15/16 18:20 Dose: 20 mg Ceftriaxone Sodium (Rocephin 1 Gram Ivpb) 1 gm in 100 mls @ 100 mls/hr IVPB DAILY [facility] PRN Reason: Protocol Last Admin: 07/15/16 10:16 Dose: 100 mls/hr Sodium Chloride (Sodium Chloride 0.9%) 1,000 mls @ 125 mls/hr IV .Q8H [facility] Last Admin: 07/15/16 18:20 Dose: 125 mls/hr Doxycycline Hyclate 100 mg/ (Sodium Chloride) 100 mls @ 100 mls/hr IVPB Q12 [facility] PRN Reason: Protocol Last Admin: 07/15/16 21:47 Dose: 100 mls/hr Ibuprofen (Motrin Tab) 400 mg PO Q6 PRN PRN Reason: Fever >100.4 F Last Admin: 07/15/16 21:21 Dose: 400 mg Ketorolac Tromethamine (Toradol) 30 mg IVP Q6H [facility] Stop: 07/17/16 00:46 Last Admin: 07/15/16 18:20 Dose: 30 mg Ondansetron HCl (Zofran Inj) 4 mg IVP Q4 PRN PRN Reason: Nausea/Vomiting Last Admin: 07/15/16 20:24 Dose: 4 mg - Labs Labs: 07/16/16 06:30 07/16/16 06:30 PT 10.5 Seconds (9.9-11.8) 07/14/16 21:55 INR 0.97 (0.93-1.08) 07/14/16 21:55 APTT 26.1 Seconds (23.7-30.8) 07/14/16 21:55 - Constitutional Appears: Non-toxic, No Acute Distress - Head Exam Head Exam: ATRAUMATIC, NORMOCEPHALIC - Eye Exam Eye Exam: EOMI, PERRL - ENT Exam ENT Exam: Mucous Membranes Moist - Neck Exam Neck Exam: Full ROM, Normal Inspection - Respiratory Exam Respiratory Exam: Clear to Ausculation Bilateral. absent: Rales, Rhonchi, Wheezes - Cardiovascular Exam Cardiovascular Exam: REGULAR RHYTHM, +S1, +S2 - GI/Abdominal Exam GI & Abdominal Exam: Soft, Tenderness (mild RLQ), Normal Bowel Sounds. absent: Distended, Guarding, Rigid - Extremities Exam Extremities Exam: absent: Calf Tenderness, Pedal Edema - Neurological Exam Neurological Exam: Alert, Awake. absent: Motor Sensory Deficit Additional comments: active ROM to all extremities - Psychiatric Exam Psychiatric exam: Normal Affect, Normal Mood - Skin Skin Exam: Normal Color, Warm Assessment and Plan - Assessment and Plan (Free Text) Assessment: 20 y/o female with hx asthma presenting with RLQ abdominal pain. CT abd/pelvis does not reveal dilation or obvious inflammation of the appendix. There is a 2.5cm right complex ovarian cyst noted on both CT and transvaginal US. Patient was evaluated by FOAM CASTER and started on abx for possible PID. Presentation is likely related to ovarian cyst vs PID. Appendicitis is not likely. - continue to manage pain - will advance diet as tolerated - continue Rocephin 1gm daily - continue Doxycycline per FOAM CASTER - no acute surgery intervention at this point - will discuss with attending <Marbella Solis - Last Filed: 09/09/16 11:11> Objective - Vital Signs/Intake and Output Vital Signs (last 24 hours): Temp Pulse Resp BP Pulse Ox 98.6 F 63 20 107/63 98 07/17/16 16:00 07/17/16 16:00 07/17/16 16:00 07/17/16 16:00 07/17/16 16:00 - Labs Labs: 07/17/16 06:00 07/17/16 06:00 PT 10.5 Seconds (9.9-11.8) 07/14/16 21:55 INR 0.97 (0.93-1.08) 07/14/16 21:55 APTT 26.1 Seconds (23.7-30.8) 07/14/16 21:55
[2016-07-16] MEDS: Sodium Chloride 0.9% 1,000 ML IV SCH ×2 (08:04→10:34)
[2016-07-16] MEDS: Enoxaparin 40 mg Syringe SC SCH (10:16)
[2016-07-16] MEDS: cefTRIAXone 1 gm 1 GM/100 ML BAG IVPB SCH (10:17)
--- NOTE | 2016-07-16 13:05 | CP.PCM.PN ---
<Cece Leahy - Last Filed: 07/16/16 13:02> Subjective - Date & Time of Evaluation Date of Evaluation: 07/16/16 Time of Evaluation: 13:03 - Subjective Subjective: HOSPITALIST PROGRESS NOTE Pt seen and examined at bedside. patient is vomiting today. She also complains of RLQ abdominal pain worse with palpation. She is currently on liquid diet but is not tolerating it due to vomiting. Denies having fevers, chills CP, SOB. Objective - Vital Signs/Intake and Output Vital Signs (last 24 hours): Temp Pulse Resp BP Pulse Ox 98.7 F 71 20 115/66 97 07/16/16 08:54 07/16/16 08:54 07/16/16 08:54 07/16/16 08:54 07/16/16 08:54 Intake and Output: 07/16/16 07/16/16 06:59 18:59 Intake Total 920 Balance 920 - Medications Medications: Current Medications Acetaminophen (Tylenol 325mg Tab) 650 mg PO Q6 PRN PRN Reason: Pain, Mild (1-3) Last Admin: 07/15/16 15:10 Dose: 650 mg Enoxaparin Sodium (Lovenox) 40 mg SC DAILY [facility] PRN Reason: Protocol Last Admin: 07/16/16 10:16 Dose: 40 mg Famotidine (Pepcid) 20 mg PO BID [facility] Last Admin: 07/16/16 10:16 Dose: 20 mg Ceftriaxone Sodium (Rocephin 1 Gram Ivpb) 1 gm in 100 mls @ 100 mls/hr IVPB DAILY [facility] PRN Reason: Protocol Last Admin: 07/16/16 10:17 Dose: 100 mls/hr Sodium Chloride (Sodium Chloride 0.9%) 1,000 mls @ 125 mls/hr IV .Q8H [facility] Last Admin: 07/16/16 10:34 Dose: 125 mls/hr Doxycycline Hyclate 100 mg/ (Sodium Chloride) 100 mls @ 100 mls/hr IVPB Q12 [facility] PRN Reason: Protocol Last Admin: 07/16/16 12:15 Dose: 100 mls/hr Ibuprofen (Motrin Tab) 400 mg PO Q6 PRN PRN Reason: Fever >100.4 F Last Admin: 07/15/16 21:21 Dose: 400 mg Ketorolac Tromethamine (Toradol) 30 mg IVP Q6H [facility] Stop: 07/17/16 00:46 Last Admin: 07/16/16 08:42 Dose: 30 mg Ondansetron HCl (Zofran Inj) 4 mg IVP Q4 PRN PRN Reason: Nausea/Vomiting Last Admin: 07/16/16 12:46 Dose: 4 mg - Labs Labs: 07/16/16 06:30 07/16/16 06:30 PT 10.5 Seconds (9.9-11.8) 07/14/16 21:55 INR 0.97 (0.93-1.08) 07/14/16 21:55 APTT 26.1 Seconds (23.7-30.8) 07/14/16 21:55 - Constitutional Appears: Non-toxic, No Acute Distress - Head Exam Head Exam: ATRAUMATIC - Eye Exam Eye Exam: EOMI - ENT Exam ENT Exam: Mucous Membranes Moist - Respiratory Exam Respiratory Exam: Clear to Ausculation Bilateral, NORMAL BREATHING PATTERN. absent: Rales, Rhonchi, Wheezes - Cardiovascular Exam Cardiovascular Exam: REGULAR RHYTHM, +S1, +S2. absent: Gallop, Rubs, Murmur - GI/Abdominal Exam GI & Abdominal Exam: Soft, Tenderness (RLQ), Normal Bowel Sounds. absent: Distended, Firm, Guarding, Rigid - Extremities Exam Extremities Exam: absent: Pedal Edema, Tenderness - Neurological Exam Neurological Exam: Alert, Awake, Oriented x3 - Psychiatric Exam Psychiatric exam: Normal Affect, Normal Mood - Skin Skin Exam: Dry, Intact, Normal Color, Warm Assessment and Plan - Assessment and Plan (Free Text) Assessment: 20 yo F w/PMH sig for asthma admitted for RLQ abdominal pain. Ct of abd/pelvis showed right lower quadrant inflammation but normal appendix. Abd US showed right ovarian complex cyst. Patient is faberile today and normal WBC count. Negative beta HCG Plan: RLQ ab pain - Pain management Motrin, Tylenol and toradol - NS 125 cc - Zofran 4mg Q6H, pepcid 20 mg po bid - CLD - Rocephin 1gm Q24H - Doxycycline 100 mg po BID - Blood cultures are negative - Will follow up on stool studies, HIV, urine cx, throat cx, chlamydia and gonorrhea - Surgery consult- [facility] -Deburrer consult- Naa. recommend continuing doxycycline 100 mg po bid x 2 weeks Hypokalemia Resolved s/p collapse in park NSR @84 bpm. Normal [place]. Normal Interval. CT brain w/No acute intracranial hemorrhage, or suspicious mass effect. Inflammatory sinus disease. Monitor History of asthma - Will continue to monitor GI/DVT ppx SCDS Lovenox Pepcid VS Q4H Activity as isabel Case discussed with attending, Dr. Price <Clau Price - Last Filed: 07/16/16 14:23> Objective - Vital Signs/Intake and Output Vital Signs (last 24 hours): Temp Pulse Resp BP Pulse Ox 98.7 F 71 20 115/66 97 07/16/16 08:54 07/16/16 08:54 07/16/16 08:54 07/16/16 08:54 07/16/16 08:54 Intake and Output: 07/16/16 07/16/16 06:59 18:59 Intake Total 920 Balance 920 - Medications Medications: Current Medications Acetaminophen (Tylenol 325mg Tab) 650 mg PO Q6 PRN PRN Reason: Pain, Mild (1-3) Last Admin: 07/15/16 15:10 Dose: 650 mg Enoxaparin Sodium (Lovenox) 40 mg SC DAILY [facility] PRN Reason: Protocol Last Admin: 07/16/16 10:16 Dose: 40 mg Famotidine (Pepcid) 20 mg PO BID [facility] Last Admin: 07/16/16 10:16 Dose: 20 mg Ceftriaxone Sodium (Rocephin 1 Gram Ivpb) 1 gm in 100 mls @ 100 mls/hr IVPB DAILY [facility] PRN Reason: Protocol Last Admin: 07/16/16 10:17 Dose: 100 mls/hr Sodium Chloride (Sodium Chloride 0.9%) 1,000 mls @ 125 mls/hr IV .Q8H [facility] Last Admin: 07/16/16 10:34 Dose: 125 mls/hr Doxycycline Hyclate 100 mg/ (Sodium Chloride) 100 mls @ 100 mls/hr IVPB Q12 [facility] PRN Reason: Protocol Last Admin: 07/16/16 12:15 Dose: 100 mls/hr Ibuprofen (Motrin Tab) 400 mg PO Q6 PRN PRN Reason: Fever >100.4 F Last Admin: 07/15/16 21:21 Dose: 400 mg Ketorolac Tromethamine (Toradol) 30 mg IVP Q6H [facility] Stop: 07/17/16 00:46 Last Admin: 07/16/16 08:42 Dose: 30 mg Ondansetron HCl (Zofran Inj) 4 mg IVP Q4 [facility] - Labs Labs: 07/16/16 06:30 07/16/16 06:30 PT 10.5 Seconds (9.9-11.8) 07/14/16 21:55 INR 0.97 (0.93-1.08) 07/14/16 21:55 APTT 26.1 Seconds (23.7-30.8) 07/14/16 21:55 Attending/Attestation - Attestation I have personally seen and examined this patient.: Yes I have fully participated in the care of the patient.: Yes I have reviewed all pertinent clinical information, including history, physical exam and plan: Yes Notes (Text): 07/16/16 14:20 Attending note; Patient seen and examined with resident. Patient is a 20-year-old female admitted with abdominal pain and nausea vomiting. CT showed complex ovarian cyst. CERAMIC CAPACITOR PROCESSOR evaluation appreciated. Currently on IV Rocephin and doxycycline. Chlamydia, gonorrhea pending. Nausea or vomiting; gastritis. Continue IV fluids, Zofran, Protonix. Clear liquid diet. Advance as tolerated. Possible discharge home tomorrow if tolerates diet. Upon discharge patient will follow-up with PMd Dr. Bocanegra.
[2016-07-17 06:27] LABS: ADD MANUAL DIFF? NO
[2016-07-17 06:51] LABS: ALKALINE PHOSPHATASE 54 U/L (38-133); ALT/SGPT 46 U/L (7-56); AST/SGOT 24 U/L (15-39); BILIRUBIN,TOTAL 0.7 mg/dL (0.2-1.3); BLOOD UREA NITROGEN 8 mg/dL (7-21); CALCIUM 8.6 mg/dL (8.4-10.5); CARBON DIOXIDE 23 mmol/L (21-33); CHLORIDE 108 mmol/L (98-107); GFR AFRICAN-AMERICAN > 60; GLUCOSE,RANDOM 85 mg/dL (70-110); POTASSIUM 3.9 mmol/L (3.6-5.0); SODIUM 139 mmol/L (132-148); TOTAL PROTEIN 6.6 g/dL (5.8-8.3)
[2016-07-17] MEDS: Sodium Chloride 0.9% 1,000 ML IV SCH (07:07)
[2016-07-17 07:26] LABS: BASO # 0.03 K/mm3 (0.0-2.0); BASO % 0.4 % (0.0-3.0); EOS # 0.3 (0.0-0.7); GRAN # 4.76 (1.4-6.5); LYMPH # 2.6 (1.2-3.4); LYMPH % 31.1 % (22.0-35.0); MEAN CELL VOLUME 87.1 fL (80.0-105.0); MEAN CORPUSCULAR HEMOGLOBIN 29.6 pg (25.0-35.0); MEAN PLATELET VOLUME 11.6 fl (7.0-11.0); MONO # 0.6 (0.1-0.6); MONO % 7.5 % (1.0-6.0); PLATELET COUNT 146 10^3/uL (120.0-450.0); RED CELL DISTRIBUTION WIDTH 13.3 % (11.5-14.5); WHITE BLOOD COUNT 8.2 10^3/ul (4.5-11.0)
[2016-07-17 07:47] VITALS: O2SAT 98
[2016-07-17] MEDS: cefTRIAXone 1 gm 1 GM/100 ML BAG IVPB SCH (10:50)
--- NOTE | 2016-07-17 13:03 | CP.PCM.PN ---
<Cece Leahy - Last Filed: 07/17/16 15:28> Subjective - Date & Time of Evaluation Date of Evaluation: 07/17/16 Time of Evaluation: 13:00 - Subjective Subjective: HOSPITALIST PROGRESS NOTE Pt is seen and examined at bedside. Later patient is seen walking around hallway with help of her father. Patient complains of continuing nausea and unable to tolerate food or liquid. Patient denies having any CP, SOB, D/C, dysuria. Patient does c/o continued RLQ pain. Objective - Vital Signs/Intake and Output Vital Signs (last 24 hours): Temp Pulse Resp BP Pulse Ox 97.5 F L 85 20 105/61 98 07/17/16 07:30 07/17/16 07:30 07/17/16 07:30 07/17/16 07:30 07/17/16 07:30 Intake and Output: 07/17/16 07/17/16 06:59 18:59 Intake Total 420 Output Total 400 Balance 20 - Medications Medications: Current Medications Acetaminophen (Tylenol 325mg Tab) 650 mg PO Q6 PRN PRN Reason: Pain, Mild (1-3) Last Admin: 07/15/16 15:10 Dose: 650 mg Enoxaparin Sodium (Lovenox) 40 mg SC DAILY [facility] PRN Reason: Protocol Last Admin: 07/16/16 10:16 Dose: 40 mg Famotidine (Pepcid) 20 mg PO BID [facility] Last Admin: 07/17/16 10:51 Dose: Not Given Ceftriaxone Sodium (Rocephin 1 Gram Ivpb) 1 gm in 100 mls @ 100 mls/hr IVPB DAILY [facility] PRN Reason: Protocol Last Admin: 07/17/16 10:50 Dose: 100 mls/hr Sodium Chloride (Sodium Chloride 0.9%) 1,000 mls @ 125 mls/hr IV .Q8H [facility] Last Admin: 07/17/16 07:07 Dose: 125 mls/hr Doxycycline Hyclate 100 mg/ (Sodium Chloride) 100 mls @ 100 mls/hr IVPB Q12 [facility] PRN Reason: Protocol Last Admin: 07/17/16 11:40 Dose: 100 mls/hr Ibuprofen (Motrin Tab) 400 mg PO Q6 PRN PRN Reason: Fever >100.4 F Last Admin: 05/04/17 05:19 Dose: 400 mg Lorazepam (Ativan) 0.5 mg IVP Q6H PRN; Protocol PRN Reason: Anxiety Metoclopramide HCl (Reglan) 5 mg IVP Q8H [facility] Last Admin: 07/17/16 11:40 Dose: 5 mg Ondansetron HCl (Zofran Inj) 4 mg IVP Q4 PRN PRN Reason: Nausea/Vomiting - Labs Labs: 07/17/16 06:00 07/17/16 06:00 PT 10.5 Seconds (9.9-11.8) 07/14/16 21:55 INR 0.97 (0.93-1.08) 07/14/16 21:55 APTT 26.1 Seconds (23.7-30.8) 07/14/16 21:55 - Constitutional Appears: Non-toxic, No Acute Distress - Head Exam Head Exam: ATRAUMATIC - Eye Exam Eye Exam: EOMI - ENT Exam ENT Exam: Mucous Membranes Moist - Respiratory Exam Respiratory Exam: Clear to Ausculation Bilateral, NORMAL BREATHING PATTERN. absent: Rales, Rhonchi, Wheezes - Cardiovascular Exam Cardiovascular Exam: REGULAR RHYTHM, +S1, +S2. absent: Gallop, Rubs, Murmur - GI/Abdominal Exam GI & Abdominal Exam: Soft, Tenderness (RLQ), Normal Bowel Sounds. absent: Distended, Firm, Guarding, Rigid - Extremities Exam Extremities Exam: absent: Pedal Edema, Tenderness - Neurological Exam Neurological Exam: Alert, Awake, Oriented x3 - Psychiatric Exam Psychiatric exam: Normal Affect, Normal Mood - Skin Skin Exam: Dry, Intact, Normal Color, Warm Assessment and Plan - Assessment and Plan (Free Text) Assessment: 20 yo F w/PMH sig for asthma admitted for RLQ abdominal pain. Ct of abd/pelvis showed right lower quadrant inflammation but normal appendix. Abd US showed right ovarian complex cyst. Patient is faberile today and normal WBC count. Negative beta HCG Plan: RLQ ab pain - Pain management Motrin, Tylenol - NS 125 cc - Zofran 4mg Q6H, pepcid 20 mg po bid - CLD - Rocephin 1gm Q24H - Doxycycline 100 mg po BID - Blood cultures are negative. HIV negative, grp B strep negative - Will follow up on stool studies, HIV, urine cx, throat cx, chlamydia and gonorrhea - Surgery consult- [facility] - Dust Collector consult- Naa. recommend continuing doxycycline 100 mg po bid x 2 weeks s/p collapse in park NSR @84 bpm. Normal [place]. Normal Interval. CT brain w/No acute intracranial hemorrhage, or suspicious mass effect. Inflammatory sinus disease. Monitor History of asthma - Will continue to monitor History of Bipolar disorder Psych consulted GI/DVT ppx SCDS. Pepcid VS Q4H Activity as isabel Case discussed with attending, Dr. Price <Clau Price - Last Filed: 07/17/16 16:56> Objective - Vital Signs/Intake and Output Vital Signs (last 24 hours): Temp Pulse Resp BP Pulse Ox 98.6 F 63 20 107/63 98 07/17/16 16:00 07/17/16 16:00 07/17/16 16:00 07/17/16 16:00 07/17/16 16:00 Intake and Output: 07/17/16 07/17/16 06:59 18:59 Intake Total 420 Output Total 400 Balance 20 - Medications Medications: Current Medications Acetaminophen (Tylenol 325mg Tab) 650 mg PO Q6 PRN PRN Reason: Pain, Mild (1-3) Last Admin: 07/15/16 15:10 Dose: 650 mg Enoxaparin Sodium (Lovenox) 40 mg SC DAILY [facility] PRN Reason: Protocol Last Admin: 07/16/16 10:16 Dose: 40 mg Famotidine (Pepcid) 20 mg PO BID [facility] Last Admin: 07/17/16 10:51 Dose: Not Given Ceftriaxone Sodium (Rocephin 1 Gram Ivpb) 1 gm in 100 mls @ 100 mls/hr IVPB DAILY [facility] PRN Reason: Protocol Last Admin: 07/17/16 10:50 Dose: 100 mls/hr Doxycycline Hyclate 100 mg/ (Sodium Chloride) 100 mls @ 100 mls/hr IVPB Q12 [facility] PRN Reason: Protocol Last Admin: 07/17/16 11:40 Dose: 100 mls/hr Ibuprofen (Motrin Tab) 400 mg PO Q6 PRN PRN Reason: Fever >100.4 F Last Admin: 07/17/16 05:19 Dose: 400 mg Lorazepam (Ativan) 0.5 mg IVP Q6H PRN; Protocol PRN Reason: Anxiety Metoclopramide HCl (Reglan) 5 mg IVP Q8H [facility] Last Admin: 07/17/16 11:40 Dose: 5 mg Ondansetron HCl (Zofran Inj) 4 mg IVP Q4 PRN PRN Reason: Nausea/Vomiting - Labs Labs: 07/17/16 06:00 07/17/16 06:00 PT 10.5 Seconds (9.9-11.8) 07/14/16 21:55 INR 0.97 (0.93-1.08) 07/14/16 21:55 APTT 26.1 Seconds (23.7-30.8) 07/14/16 21:55 Attending/Attestation - Attestation I have personally seen and examined this patient.: Yes I have fully participated in the care of the patient.: Yes I have reviewed all pertinent clinical information, including history, physical exam and plan: Yes Notes (Text): 07/17/16 16:54 Attending note; Patient seen and examined with resident. Patient is a 20-year-old female admitted with abdominal pain and nausea vomiting. CT showed complex ovarian cyst. LARRY OPERATOR evaluation appreciated. Currently on IV Rocephin and doxycycline. Chlamydia, gonorrhea Is negative. HIV is negative. Group B stptococcus negative. Nausea or vomiting; resolving. Tolerating liquid . Advance as tolerated. surgery evaluation appreciated. Patient complaining of right lower quadrant pain.follow up closely for the need for any laparoscopic intervention. History of bipolar disorder; psychiatric evaluation requested. Upon discharge patient will follow-up with PMd Dr. Bocanegra. 07/17/16 16:54 07/17/16 16:56
--- NOTE | 2016-07-17 13:20 | CP.PCM.PN ---
Subjective - Date & Time of Evaluation Date of Evaluation: 07/17/16 Time of Evaluation: 11:00 - Subjective Subjective: General Surgery Dr. Sol[facility] Pt S&E @bedside. NAEO. c/o RLQ pain, worse w/ mvt and PO intake. denies N/V, D/C , F/C. NPO. Per pt mother, pt has Hx of depression/bipolar disorder. Objective - Vital Signs/Intake and Output Vital Signs (last 24 hours): Temp Pulse Resp BP Pulse Ox 97.5 F L 85 20 105/61 98 07/17/16 07:30 07/17/16 07:30 07/17/16 07:30 07/17/16 07:30 07/17/16 07:30 Intake and Output: 07/17/16 07/17/16 06:59 18:59 Intake Total 420 Output Total 400 Balance 20 - Medications Medications: Current Medications Acetaminophen (Tylenol 325mg Tab) 650 mg PO Q6 PRN PRN Reason: Pain, Mild (1-3) Last Admin: 07/15/16 15:10 Dose: 650 mg Enoxaparin Sodium (Lovenox) 40 mg SC DAILY [facility] PRN Reason: Protocol Last Admin: 07/16/16 10:16 Dose: 40 mg Famotidine (Pepcid) 20 mg PO BID [facility] Last Admin: 07/17/16 10:51 Dose: Not Given Ceftriaxone Sodium (Rocephin 1 Gram Ivpb) 1 gm in 100 mls @ 100 mls/hr IVPB DAILY [facility] PRN Reason: Protocol Last Admin: 07/17/16 10:50 Dose: 100 mls/hr Sodium Chloride (Sodium Chloride 0.9%) 1,000 mls @ 125 mls/hr IV .Q8H [facility] Last Admin: 07/17/16 07:07 Dose: 125 mls/hr Doxycycline Hyclate 100 mg/ (Sodium Chloride) 100 mls @ 100 mls/hr IVPB Q12 [facility] PRN Reason: Protocol Last Admin: 07/17/16 11:40 Dose: 100 mls/hr Ibuprofen (Motrin Tab) 400 mg PO Q6 PRN PRN Reason: Fever >100.4 F Last Admin: 07/17/16 05:19 Dose: 400 mg Lorazepam (Ativan) 0.5 mg IVP Q6H PRN; Protocol PRN Reason: Anxiety Metoclopramide HCl (Reglan) 5 mg IVP Q8H [facility] Last Admin: 07/17/16 11:40 Dose: 5 mg Ondansetron HCl (Zofran Inj) 4 mg IVP Q4 PRN PRN Reason: Nausea/Vomiting - Labs Labs: 07/17/16 06:00 07/17/16 06:00 PT 10.5 Seconds (9.9-11.8) 07/14/16 21:55 INR 0.97 (0.93-1.08) 07/14/16 21:55 APTT 26.1 Seconds (23.7-30.8) 07/14/16 21:55 - Constitutional Appears: Non-toxic, No Acute Distress - Head Exam Head Exam: NORMAL INSPECTION - Eye Exam Eye Exam: Normal appearance - ENT Exam ENT Exam: Mucous Membranes Moist - Respiratory Exam Respiratory Exam: NORMAL BREATHING PATTERN. absent: Accessory Muscle Use, Respiratory Distress - GI/Abdominal Exam GI & Abdominal Exam: Guarding (voluntary), Soft, Tenderness (TTP RLQ). absent: Distended, Firm, Rigid, Rebound - Extremities Exam Extremities Exam: Normal Inspection. absent: Pedal Edema, Tenderness - Neurological Exam Neurological Exam: Alert, Awake, Oriented x3 - Psychiatric Exam Psychiatric exam: Normal Affect, Normal Mood - Skin Skin Exam: Dry, Intact, Normal Color, Warm Assessment and Plan - Assessment and Plan (Free Text) Assessment: 20 y/o F w/ RLQ abd pain. - NPO, IVF - IV Abx - pain management - Possible OR today for Diagnostic laparoscopy Pt discussed w/ Dr. Will Velasquez DO PGY1
--- NOTE | 2016-07-17 16:11 | CP.PCM.DIS ---
Addendum entered and electronically signed by Cece Leahy DO 07/17/16 16:30: Patient was explained the risks of leaving AMA with her condition. She understood the risks and still insisted upon leaving. Patient was discharged with doxycycline 100 mg po BID #22 tabs, Zofran and pepcid. Patient was told to return to ED if her symptoms become worse. Original Note: <Cece Leahy - Last Filed: 07/17/16 15:57> Provider - Provider Date of Admission: 07/15/16 03:03 Attending physician: Clau Price MD Primary care physician: Kaity Bocanegra MD Consults: Surgery: Dr. Solis die maker stamping: Dr. Jacome Psych: Dr. Marina Time Spent in preparation of Discharge (in minutes): 45 Diagnosis - Discharge Diagnosis (1) Asthma Status: Chronic (2) Bipolar disorder Status: Chronic (3) Abdominal pain Status: Acute (4) Right ovarian cyst Status: Acute Hospital Course - Lab Results Lab Results: Micro Results 07/15/16 11:00 Blood-Venous Blood Culture - Preliminary NO GROWTH AFTER 48 HOURS 07/15/16 11:30 Blood-Venous Blood Culture - Preliminary NO GROWTH AFTER 48 HOURS 07/15/16 16:00 Throat Group A Strep Throat Culture - Final NO BETA STREP GROUP A ISOLATED. 07/15/16 12:00 Urine,Clean Catch Urine Culture - Final 50-100,000 CFU/ML. MULTIPLE SPECIES. SUGGEST REPEAT SPECIMEM. Most Recent Lab Values WBC 8.2 10^3/ul (4.5-11.0) 07/17/16 06:00 RBC 4.02 10^6/uL (3.5-6.1) 07/17/16 06:00 Hgb 11.9 gm/dL (12.0-16.0) L 07/17/16 06:00 Hct 35.0 % (36.0-48.0) L 07/17/16 06:00 MCV 87.1 fL (80.0-105.0) 07/17/16 06:00 MCH 29.6 pg (25.0-35.0) 07/17/16 06:00 MCHC 34.0 g/dl (31.0-37.0) 07/17/16 06:00 RDW 13.3 % (11.5-14.5) 07/17/16 06:00 Plt Count 146 10^3/uL (120.0-450.0) 07/17/16 06:00 MPV 11.6 fl (7.0-11.0) H 07/17/16 06:00 Gran % 58.0 % (50.0-68.0) 07/17/16 06:00 Lymph % (Auto) 31.1 % (22.0-35.0) 07/17/16 06:00 [place] % (Auto) 7.5 % (1.0-6.0) H 07/17/16 06:00 Eos % (Auto) 3.0 % (1.5-5.0) 07/17/16 06:00 Baso % (Auto) 0.4 % (0.0-3.0) 07/17/16 06:00 Gran # 4.76 (1.4-6.5) 07/17/16 06:00 Lymph # 2.6 (1.2-3.4) 07/17/16 06:00 [place] # 0.6 (0.1-0.6) 07/17/16 06:00 Eos # 0.3 (0.0-0.7) 07/17/16 06:00 Baso # 0.03 K/mm3 (0.0-2.0) 07/17/16 06:00 PT 10.5 Seconds (9.9-11.8) 07/14/16 21:55 INR 0.97 (0.93-1.08) 07/14/16 21:55 APTT 26.1 Seconds (23.7-30.8) 07/14/16 21:55 Sodium 139 mmol/L (132-148) 07/17/16 06:00 Potassium 3.9 mmol/L (3.6-5.0) 07/17/16 06:00 Chloride 108 mmol/L (98-107) H 07/17/16 06:00 Carbon Dioxide 23 mmol/L (21-33) 07/17/16 06:00 Anion Gap 12 (10-20) 07/17/16 06:00 BUN 8 mg/dL (7-21) 07/17/16 06:00 Creatinine 0.8 mg/dL (0.5-1.4) 07/17/16 06:00 Est GFR ( Amer) > 60 07/17/16 06:00 Est GFR (Non-Af Amer) > 60 07/17/16 06:00 Random Glucose 85 mg/dL (70-110) 07/17/16 06:00 Calcium 8.6 mg/dL (8.4-10.5) 07/17/16 06:00 Total Bilirubin 0.7 mg/dL (0.2-1.3) 07/17/16 06:00 AST 24 U/L (15-39) 07/17/16 06:00 ALT 46 U/L (7-56) 07/17/16 06:00 Alkaline Phosphatase 54 U/L (38-133) 07/17/16 06:00 Total Protein 6.6 g/dL (5.8-8.3) 07/17/16 06:00 Albumin 3.3 g/dL (3.0-4.8) 07/17/16 06:00 Globulin 3.3 gm/dL 07/17/16 06:00 Albumin/Globulin Ratio 1.0 (1.1-1.8) L 07/17/16 06:00 Lipase 160 U/L (23-300) 07/14/16 21:55 Urine Color Yellow (YELLOW) 07/15/16 12:00 Urine Appearance Clear (CLEAR) 07/15/16 12:00 Urine pH 6.0 (4.7-8.0) 07/15/16 12:00 Ur Specific [place] 1.020 (1.005-1.035) 07/15/16 12:00 Urine Protein Negative mg/dL (<30 mg/dL) 07/15/16 12:00 Urine Glucose (UA) Negative mg/dL (NEGATIVE) 07/15/16 12:00 Urine Ketones Negative mg/dL (NEGATIVE) 07/15/16 12:00 Urine Blood Negative (NEGATIVE) 07/15/16 12:00 Urine Nitrate Negative (NEGATIVE) 07/15/16 12:00 Urine Bilirubin Negative (NEGATIVE) 07/15/16 12:00 Urine Urobilinogen 0.2 E.U./dL (<1 E.U./dL) 07/15/16 12:00 Ur Leukocyte Esterase Negative [place]/uL (NEGATIVE) 07/15/16 12:00 Urine RBC 0 - 2 /hpf (0-2) 07/14/16 22:25 Urine WBC Negative /hpf (0-6) 07/14/16 22:25 Ur Epithelial Cells 1 - 3 /hpf (0-5) 07/14/16 22:25 Urine Bacteria Small (NEG) 07/14/16 22:25 Urine HCG, Qual Negative (NEGATIVE) 07/14/16 22:25 C.trachomatis RNA (TMA) Not detected (Not Detected) 07/15/16 12:00 HIV 1&2 Ag/Ab, 4th Gen Nonreactive (Nonreactive) 07/16/16 06:30 N.gonorrhoeae RNA (TMA) Not detected (Not Detected) 07/15/16 12:00 Grp A Beta Strep Ag Negative (NEGATIVE) 07/15/16 16:00 - Hospital Course Hospital Course: 20F w/PMH sig for asthma admitted for abdominal pain x 4 days. Pain started on Thursday night, 4 days RN IV THERAPY, sudden onset. Pt states she is due for her menses and attributed pain to menstrual pain. Pain started out as epigastric w/radiation to lower quadrants B/L, intermittent since onset, moderate in severity. Pt tried Ibuprofen to alleviate pain- minimally alleviating. Today pt report 4 episodes of emesis- pink w/food stuff. Pain became constant on day of admission. Pt reports running errands throughout the day without pain medications taken on day RN IV THERAPY. Pt reports collapsing while at a park, "legs gave out from under her", continues with numbness/pins/needles sensation in feet B/L. Had 1 episodes of transient substernal CP. Admits to subjective fevers, chills, nausea, SOB, CP, spots and change in vision color (orange), decreased appetite, cough, sore throat, rhinorrhea, headaches. Denies blurry vision, palpitations, lower extremity edema. On admission CT of head was negative. CT of abdomen showed a inflammatory change within the right lower quadrant adjacent to normal caliber appendix. It also showed 2.5 cm right ovarian cyst. Transvaginal US was done which showed a complex right ovarian cyst and no intrauterine gestation. FORKL[employer] TRUCK OPERATOR was also consulted and recommended Doxycycline treatment for patient for 2 weeks for treatment of PID. Patient continued to have RLQ abdominal pain and N/V. Surgery was consulted and recommended diagnostic laproscopy to determine the source of the patient's symptoms. However, patient's symptoms slightly improved and surgery then started patient on trial liquid diet. At this point patient became frustrated and signed out AMA. During the hospital stay, patient's mother explained that patient has history of bipolar disorder. Psych was also consulted on patient but patient left before she could be seen by psychiatrist. Patient has signed out against medical advice. - Date & Time of H&P Date of H&P: 07/17/16 Time of H&P: 15:59 Discharge Exam - Head Exam Head Exam: ATRAUMATIC - Eye Exam Eye Exam: EOMI - ENT Exam ENT Exam: Mucous Membranes Moist - Respiratory Exam Respiratory Exam: Clear to PA & Lateral. absent: Accessory Muscle Use, Rales, Rhonchi, Wheezes, Respiratory Distress - Cardiovascular Exam Cardiovascular Exam: REGULAR RHYTHM, +S1, +S2. absent: Diastolic murmur, Gallop , Rubs, Systolic Murmur - GI/Abdominal Exam GI & Abdominal Exam: Normal Bowel Sounds, Soft, Tenderness. absent: Distended, Firm, Guarding - Neurological Exam Neurological exam: Alert, Oriented x3 - Psychiatric Exam Psychiatric exam: Normal Affect, Normal Mood - Skin Skin Exam: Dry, Intact, Normal Color, Warm Discharge Plan - Discharge Medications Prescriptions: Doxycycline Hyclate 100 mg PO BID #22 cap Famotidine [Pepcid] 20 mg PO BID #30 tab Ondansetron [Zofran Inj] 4 mg IVP Q12 PRN #6 vial PRN Reason: Nausea/Vomiting - Follow Up Plan Condition: GOOD Disposition: HOME/ ROUTINE Additional Instructions: Patient has signed out against medical advice. Referrals: Kaity Bocanegra MD [Primary Care Provider] - <Clau Price - Last Filed: 07/17/16 16:59> Provider - Provider Date of Admission: 07/15/16 03:03 Attending physician: Clau Price MD Primary care physician: Kaity Bocanegra MD Hospital Course - Lab Results Lab Results: Micro Results 07/15/16 11:00 Blood-Venous Blood Culture - Preliminary NO GROWTH AFTER 48 HOURS 07/15/16 11:30 Blood-Venous Blood Culture - Preliminary NO GROWTH AFTER 48 HOURS 07/15/16 16:00 Throat Group A Strep Throat Culture - Final NO BETA STREP GROUP A ISOLATED. 07/15/16 12:00 Urine,Clean Catch Urine Culture - Final 50-100,000 CFU/ML. MULTIPLE SPECIES. SUGGEST REPEAT SPECIMEM. Most Recent Lab Values WBC 8.2 10^3/ul (4.5-11.0) 07/17/16 06:00 RBC 4.02 10^6/uL (3.5-6.1) 07/17/16 06:00 Hgb 11.9 gm/dL (12.0-16.0) L 07/17/16 06:00 Hct 35.0 % (36.0-48.0) L 07/17/16 06:00 MCV 87.1 fL (80.0-105.0) 07/17/16 06:00 MCH 29.6 pg (25.0-35.0) 07/17/16 06:00 MCHC 34.0 g/dl (31.0-37.0) 07/17/16 06:00 RDW 13.3 % (11.5-14.5) 07/17/16 06:00 Plt Count 146 10^3/uL (120.0-450.0) 07/17/16 06:00 MPV 11.6 fl (7.0-11.0) H 07/17/16 06:00 Gran % 58.0 % (50.0-68.0) 07/17/16 06:00 Lymph % (Auto) 31.1 % (22.0-35.0) 07/17/16 06:00 [place] % (Auto) 7.5 % (1.0-6.0) H 07/17/16 06:00 Eos % (Auto) 3.0 % (1.5-5.0) 07/17/16 06:00 Baso % (Auto) 0.4 % (0.0-3.0) 07/17/16 06:00 Gran # 4.76 (1.4-6.5) 07/17/16 06:00 Lymph # 2.6 (1.2-3.4) 07/17/16 06:00 [place] # 0.6 (0.1-0.6) 07/17/16 06:00 Eos # 0.3 (0.0-0.7) 07/17/16 06:00 Baso # 0.03 K/mm3 (0.0-2.0) 07/17/16 06:00 PT 10.5 Seconds (9.9-11.8) 07/14/16 21:55 INR 0.97 (0.93-1.08) 07/14/16 21:55 APTT 26.1 Seconds (23.7-30.8) 07/14/16 21:55 Sodium 139 mmol/L (132-148) 07/17/16 06:00 Potassium 3.9 mmol/L (3.6-5.0) 07/17/16 06:00 Chloride 108 mmol/L (98-107) H 07/17/16 06:00 Carbon Dioxide 23 mmol/L (21-33) 07/17/16 06:00 Anion Gap 12 (10-20) 07/17/16 06:00 BUN 8 mg/dL (7-21) 07/17/16 06:00 Creatinine 0.8 mg/dL (0.5-1.4) 07/17/16 06:00 Est GFR ( Amer) > 60 07/17/16 06:00 Est GFR (Non-Af Amer) > 60 07/17/16 06:00 Random Glucose 85 mg/dL (70-110) 07/17/16 06:00 Calcium 8.6 mg/dL (8.4-10.5) 07/17/16 06:00 Total Bilirubin 0.7 mg/dL (0.2-1.3) 07/17/16 06:00 AST 24 U/L (15-39) 07/17/16 06:00 ALT 46 U/L (7-56) 07/17/16 06:00 Alkaline Phosphatase 54 U/L (38-133) 07/17/16 06:00 Total Protein 6.6 g/dL (5.8-8.3) 07/17/16 06:00 Albumin 3.3 g/dL (3.0-4.8) 07/17/16 06:00 Globulin 3.3 gm/dL 07/17/16 06:00 Albumin/Globulin Ratio 1.0 (1.1-1.8) L 07/17/16 06:00 Lipase 160 U/L (23-300) 07/14/16 21:55 Urine Color Yellow (YELLOW) 07/15/16 12:00 Urine Appearance Clear (CLEAR) 07/15/16 12:00 Urine pH 6.0 (4.7-8.0) 07/15/16 12:00 Ur Specific [place] 1.020 (1.005-1.035) 07/15/16 12:00 Urine Protein Negative mg/dL (<30 mg/dL) 07/15/16 12:00 Urine Glucose (UA) Negative mg/dL (NEGATIVE) 07/15/16 12:00 Urine Ketones Negative mg/dL (NEGATIVE) 07/15/16 12:00 Urine Blood Negative (NEGATIVE) 07/15/16 12:00 Urine Nitrate Negative (NEGATIVE) 07/15/16 12:00 Urine Bilirubin Negative (NEGATIVE) 07/15/16 12:00 Urine Urobilinogen 0.2 E.U./dL (<1 E.U./dL) 07/15/16 12:00 Ur Leukocyte Esterase Negative Florina/uL (NEGATIVE) 07/15/16 12:00 Urine RBC 0 - 2 /hpf (0-2) 07/14/16 22:25 Urine WBC Negative /hpf (0-6) 07/14/16 22:25 Ur Epithelial Cells 1 - 3 /hpf (0-5) 07/14/16 22:25 Urine Bacteria Small (NEG) 07/14/16 22:25 Urine HCG, Qual Negative (NEGATIVE) 07/14/16 22:25 C.trachomatis RNA (TMA) Not detected (Not Detected) 07/15/16 12:00 HIV 1&2 Ag/Ab, 4th Gen Nonreactive (Nonreactive) 07/16/16 06:30 N.gonorrhoeae RNA (TMA) Not detected (Not Detected) 07/15/16 12:00 Grp A Beta Strep Ag Negative (NEGATIVE) 07/15/16 16:00 Attending/Attestation - Attestation I have personally seen and examined this patient.: Yes I have fully participated in the care of the patient.: Yes I have reviewed all pertinent clinical information, including history, physical exam and plan: Yes Notes (Text): 07/17/16 16:57 Attending note; Patient seen and examined with resident. Patient is a 20-year-old female admitted with abdominal pain and nausea vomiting. CT showed complex ovarian cyst. [employer]AN[employer] OPERATOR evaluation appreciated. Currently on IV Rocephin and doxycycline. Chlamydia, gonorrhea Is negative. HIV is negative. Group B stptococcus negative. Nausea or vomiting; resolving. Tolerating liquid . Advance as tolerated. surgery evaluation appreciated. Patient complaining of right lower quadrant pain.follow up closely for the need for any laparoscopic intervention. History of bipolar disorder; psychiatric evaluation appreciated. Patient is clinically stable. patient signed against medical advice. Upon discharge patient will follow-up with PMd Dr. Bocanegra. diagnosis; Abdominal pain gastritis bipolar
[2016-07-17 16:43] VITALS: BP 107/63; PULSE 63; TEMP 98.6
--- NOTE | 2016-07-17 19:45 | CON ---
DATE: 07/17/2016 HISTORY OF PRESENT ILLNESS: Shortly, the patient is a 20-year-old female with questionable history o f bipolar disorder. The patient was admitted on the medical floor for evaluation of abdominal pain. Psych consult was called for evaluation of possible medication management because patient has histor y of mental illness. The patient initially was seen by the medical record assistant. This web content writer repeated l roser on. The patient presented to be in pain; reported that she does not feel comfortable at the mom ent of the interview. The patient denied any symptoms of depression, denied thoughts of harming hers elf or others, denied intent or plan. The patient reported that she has history of depression and hi story of being admitted to the psychiatric inpatient unit. The patient has history of suicidal ideat ion, but no intent or plan. The patient was on multiple psychotropic medications: Xanax as well as Zoloft, but patient does not want to be continued on those medications. The patient was not able to continue interview. VITAL SIGNS: Reviewed. MEDICATIONS: Reviewed, seems to be stable. LABORATORY DATA: Reviewed. Leukocytosis is trending down. WBC cells today is 8.2, hemoglobin and h ematocrit 11.9 and 35.0 respectively. Chemistry within normal limits. Serology within normal limits . Urinalysis: test is negative. There are no signs of infection. MENTAL STATUS EXAMINATION: The patient seems to be in pain, ____ her bed. The patient's boyfriend n ext to her. The patient has no eye contact. Speech was underproductive. The patient reported that she is in pain and that is why she cannot have an interview. Thought process seems to be logical and goal directed. Mood described as "I feel fine right now, I do not need to be on any medications". Thought content: The patient denied visual, auditory, tactile hallucinations. Denied paranoid ideat ions. Denied thoughts of harming herself or others, denied intent or plan. IMPRESSION: The patient has history of mental illness as per report. Questionable history of bipola r disorder. Currently, the patient is not on any psychotropic medication, does not have any psychiat rist as an outpatient. PLAN: The patient does not want to be on any psychotropic medication, does not want to be seen by ps ychiatrist and deemed not to be a danger to self or others. This web content writer will sign off. Nikki Marina MD cc: [id number] TT: 07/17/2016 19:44:05 Confirmation # [id number] Dictation # [id number]
== END 2016-07-17 17:40 | disposition left against medical advice (07) ==
LOC: ED 21:31 → ERH 07-15 03:03 → 5RNO 07-15 04:22
PROVIDERS: ADMIT Internal Medicine; ATTEND Internal Medicine
DX: N83.291 Other ovarian cyst, right side (principal); K29.70 Gastritis, unspecified, without bleeding; R10.2 Pelvic and perineal pain; R10.13 Epigastric pain; J45.909 Unspecified asthma, uncomplicated; F31.9 Bipolar disorder, unspecified; R51 Headache; R55 Syncope and collapse; E87.6 Hypokalemia
CPT/HCPCS: 36415; 70450; 71010; 74177; 76830; 80053; 81001; 81003; 83690; 84703; 85025; 85610; 85730; 87040; 87070; 87086; 87430; 87491; 87591; 93005; 96365; 96366; 96372; 96375; 96376; 99285; G0378; J0696; J1650; J1885; J2270; J2405; J2765; J7040; Q9967

== ENCOUNTER 2017-03-01 05:57 | Emergency (ER) | payer MEDICAID ==
[2017-03-01 05:57] VITALS: BMI 28.3
[2017-03-01 06:15] VITALS: TEMP 98.1
--- NOTE | 2017-03-01 06:25 | ED PDOC ---
Arrival/HPI - General Chief Complaint: Abdominal Pain Time Seen by Provider: 03/01/17 06:22 Historian: Patient - History of Present Illness Narrative History of Present Illness (Text): 03/01/17 06:25 Alma Johns is a 21 year old female, whose past medical history includes asthma, who presents to the Emergency department complaining of abdominal pain for the past few days. Patient states she has been experiencing lower abdominal pain with associated nausea and vomiting for the past few days. Patient reports she is currently menstruating, but states symptoms are not consistent with her usual menstrual pain. Patient notes she was seen at [facility] on 02/26/17 for similar symptoms and discharged home. Patient denies fever, chills, chest pain, shortness of breath, diarrhea, urinary symptoms, headache, dizziness, or any other complaints. Symptom Onset: Gradual Symptom Course: Unchanged Activities at Onset: Light Context: Home Past Medical History - Provider Review Nursing Documentation Reviewed: Yes - Past History Past History: No Previous - Infectious Disease Hx of Infectious Diseases: None - Tetanus Immunization Tetanus Immunization: Unknown - Reproductive Menopause: No - Cardiac Hx Cardiac Disorders: No - Pulmonary Hx Asthma: Yes - Neurological Hx Neurological Disorder: Yes Hx Syncope: Yes - HEENT Hx HEENT Disorder: No - Renal Hx Renal Disorder: No - Endocrine/Metabolic Hx Endocrine Disorders: No - Hematological/Oncological Hx Blood Disorders: No - Integumentary Hx Dermatological Disorder: No - Musculoskeletal/Rheumatological Hx Musculoskeletal Disorders: Yes Hx Falls: Yes - Gastrointestinal Hx Gastrointestinal Disorders: No - Genitourinary/Gynecological Hx Genitourinary Disorders: No Other/Comment: [facility] doctors: Dr Anne/Dr Michel...last seen before her trip to [facility] a few weeks ago. Benign Ovarian Cyst history - Psychiatric Hx Depression: No Hx Substance Use: No - Past Surgical History Past Surgical History: No Previous - Anesthesia Hx Anesthesia: No Hx Anesthesia Reactions: No - Suicidal Assessment Feels Threatened In Home Enviroment: No Family/Social History - Physician Review Nursing Documentation Reviewed: Yes Family/Social History: Unknown Family HX Smoking Status: Never Smoked Hx Alcohol Use: No Hx Substance Use: No Hx Substance Use Treatment: No Allergies/Home Meds Allergies/Adverse Reactions: Allergies No Known Allergies Allergy (Verified 07/14/16 21:47) Home Medications: Home Meds Medication Instructions Recorded Confirmed No Known Home Med 03/01/17 03/01/17 Review of Systems - Physician Review All systems were reviewed & negative as marked: Yes - Review of Systems Constitutional: Normal. absent: Fevers Eyes: Normal ENT: Normal Respiratory: Normal. absent: SOB, Cough Cardiovascular: Normal. absent: Chest Pain Gastrointestinal: Abdominal Pain, Nausea, Vomiting. absent: Diarrhea Genitourinary Female: Normal. absent: Dysuria, Frequency, Hematuria, Urine Output Changes Musculoskeletal: Normal. absent: Back Pain, Neck Pain Skin: Normal. absent: Rash Neurological: Normal. absent: Headache, Dizziness Endocrine: Normal Hemo/Lymphatic: Normal Psychiatric: Normal Physical Exam Vital Signs Reviewed: Yes Vital Signs Temp Pulse Resp BP Pulse Ox 03/01/17 06:09 98.1 F 76 17 130/78 98 Temperature: Afebrile Blood Pressure: Normal Pulse: Regular Respiratory Rate: Normal Appearance: Positive for: Well-Appearing, Non-Toxic, Comfortable Pain Distress: None Mental Status: Positive for: Alert and Oriented X 3 - Systems Exam Head: Present: Atraumatic, Normocephalic Pupils: Present: PERRL Extroacular Muscles: Present: EOMI Conjunctiva: Present: Normal Mouth: Present: Moist Mucous Membranes Neck: Present: Normal Range of Motion Respiratory/Chest: Present: Clear to Auscultation, Good Air Exchange. No: Respiratory Distress, Accessory Muscle Use Cardiovascular: Present: Regular Rate and Rhythm, Normal S1, S2. No: Murmurs Abdomen: Present: Tenderness (Palpable tenderness to lower abdomen), Normal Bowel Sounds. No: Distention, Peritoneal Signs Back: Present: Normal Inspection Upper Extremity: Present: Normal Inspection. No: Cyanosis, Edema Lower Extremity: Present: Normal Inspection. No: Edema Neurological: Present: GCS=15, CN II-XII Intact, Speech Normal Skin: Present: Warm, Dry, Normal Color. No: Rashes Psychiatric: Present: Alert, Oriented x 3, Normal Insight, Normal Concentration Medical Decision Making ED Course and Treatment: 03/01/17 06:25 Impression: 21 year old female complaining of lower abdominal pain with nausea and vomiting for the past few days. Plan: -- Labs, lipase -- Urinalysis -- IV fluids -- Reassess and disposition Prior Visits: Notes and results from previous visits were reviewed. On 02/26/2017, pt was seen in the Emergency department for bilateral upper extremity paresthesias and abdominal pain. Pt was d/c home. Progress Notes: 03/01/17 07:[address] Shepherd, pending labs,CT Scan, re-assessment, and final disposition. - RAD Interpretation Radiology Orders: 03/01/17 06:51 ABD & PELVIS IV CONTRAST ONLY [CT] Stat - Medication Orders Current Medication Orders: Sodium Chloride (Sodium Chloride 0.9%) 1,000 mls @ 999 mls/hr IV .Q1H1M STA Stop: 03/01/17 07:27 Last Admin: 03/01/17 06:37 Dose: 999 mls/hr eMAR Start Stop Document 03/01/17 06:37 AB (Rec: 03/01/17 06:39 AB [facility] [id number] Intravenous Solution Start Date 03/01/17 Start Time 06:39 End Date 03/01/17 End time 07:09 Total Infusion Time 30 Ketorolac Tromethamine (Toradol) 30 mg IVP ONCE ONE Stop: 03/01/17 06:51 Ondansetron HCl (Zofran Inj) 4 mg IVP ONCE ONE Stop: 03/01/17 06:51 - Scribe Statement The provider has reviewed the documentation as recorded by the Scribe Marsha Grove All medical record entries made by the Scribe were at my direction and personally dictated by me. I have reviewed the chart and agree that the record accurately reflects my personal performance of the history, physical exam, medical decision making, and the department course for this patient. I have also personally directed, reviewed, and agree with the discharge instructions and disposition. Disposition/Present on Arrival - Present on Arrival Any Indicators Present on Arrival: No History of DVT/PE: No History of Uncontrolled Diabetes: No Urinary Catheter: No History of Decub. Ulcer: No History Surgical Site Infection Following: None - Disposition Have Diagnosis and Disposition been Completed?: No Diagnosis: Abdominal pain Disposition Time: 07:00 Condition: STABLE Forms: [employer] (Indian)
[2017-03-01] MEDS ORDERED: Sodium Chloride 0.9% 1,000 ML IV STA (06:27)
[2017-03-01 07:08] LABS: HEMATOCRIT 39.5 % (36.0-48.0); MEAN CELL VOLUME 86.6 fl (80.0-105.0); MEAN CORPUSCULAR HEMOGLOBIN 29.4 pg (25.0-35.0); MEAN CORPUSCULAR HGB CONC 33.9 g/dl (31.0-37.0); MEAN PLATELET VOLUME 11.9 fl (7.0-11.0); RED CELL DISTRIBUTION WIDTH 12.9 % (11.5-14.5); WHITE BLOOD COUNT 9.5 10^3/ul (4.5-11.0)
[2017-03-01 07:22] LABS: ALB/GLOB RATIO 1.2 (1.1-1.8); ALKALINE PHOSPHATASE 52 U/L (38-126); ALT/SGPT 31 U/L (7-56); AST/SGOT 25 U/L (14-36); BILIRUBIN,TOTAL 0.4 mg/dL (0.2-1.3); BLOOD UREA NITROGEN 16 mg/dL (7-21); CALCIUM 8.9 mg/dL (8.4-10.5); CARBON DIOXIDE 23 mmol/L (21-33); CHLORIDE 108 mmol/L (98-107); GFR AFRICAN-AMERICAN > 60; GLUCOSE,RANDOM 98 mg/dL (70-110); LIPASE 146 U/L (23-300); POTASSIUM 3.9 mmol/L (3.6-5.0); SODIUM 142 mmol/L (132-148); TOTAL PROTEIN 7.3 g/dL (5.8-8.3)
[2017-03-01 07:26] LABS: URINE BILIRUBIN NEGATIVE (NEGATIVE); URINE BLOOD LARGE (NEGATIVE); URINE GLUCOSE (UA) NEGATIVE (NEGATIVE); URINE KETONE NEGATIVE (NEGATIVE); URINE LEUKOCYTE ESTERASE NEGATIVE Leu/uL (NEGATIVE); URINE PROTEIN TRACE mg/dL (<30 mg/dL); URINE UROBILINOGEN 0.2 E.U./dL (<1 E.U./dL)
[2017-03-01 07:29] LABS: INR 1.07 (0.93-1.08); PARTIAL THROMBOPLASTIN TIME 34.3 Seconds (25.1-36.5)
[2017-03-01] MEDS ORDERED: Iohexol 350 MG/100 ML VIAL ONE (07:30)
[2017-03-01 07:34] LABS: URINE APPEARANCE SL CLOUDY (CLEAR); URINE COLOR YELLOW (YELLOW)
[2017-03-01] MEDS ORDERED: Morphine 4 mg/ml ISec IVP STA (07:37)
[2017-03-01 08:49] LABS: URINE RBC 20 - 25 /hpf (0-2)
[2017-03-01 08:50] LABS: URINE BACTERIA RARE (NEG)
--- NOTE | 2017-03-01 10:41 | US ---
HISTORY: hemorhagic cyst COMPARISON: None available. TECHNIQUE: Transvaginal FINDINGS: UTERUS: Measures 7.90 x 3.97 x 4.22 cm. Normal in size and appearance. No fibroid or other mass lesion seen. ENDOMETRIUM: Measures 7 mm in diameter. Unremarkable. CERVIX: No cervical abnormality identified. There is a small amount of fluid in the cervical canal. The cervix measures 3.07 cm in length RIGHT OVARY: Measures 2.71 x 2.71 x 2.51 cm. No solid mass. Normal flow. LEFT OVARY: Measures 2.87 x 1.43 x 2.87 cm. No solid mass. Normal flow. Follicular cysts FREE FLUID: No significant free fluid noted. OTHER FINDINGS: None. IMPRESSION: Unremarkable pelvic ultrasound.
--- NOTE | 2017-03-01 11:13 | ED PDOC ---
Physical Exam Vital Signs Reviewed: Yes Vital Signs Temp Pulse Resp BP Pulse Ox 03/01/17 11:00 56 L 16 103/58 L 99 03/01/17 09:00 65 17 115/68 100 03/01/17 07:51 98.1 F 69 17 145/91 H 100 03/01/17 06:09 98.1 F 76 17 130/78 98 Temperature: Afebrile Blood Pressure: Normal Pulse: Regular Respiratory Rate: Normal Appearance: Positive for: Well-Appearing, Non-Toxic, Uncomfortable Pain Distress: None Mental Status: Positive for: Alert and Oriented X 3 - Systems Exam Head: Present: Atraumatic, Normocephalic Pupils: Present: PERRL Extroacular Muscles: Present: EOMI Conjunctiva: Present: Normal Mouth: Present: Moist Mucous Membranes Neck: Present: Normal Range of Motion Respiratory/Chest: Present: Clear to Auscultation, Good Air Exchange. No: Respiratory Distress, Accessory Muscle Use Cardiovascular: Present: Regular Rate and Rhythm, Normal S1, S2. No: Murmurs Abdomen: Present: Normal Bowel Sounds. No: Tenderness, Distention, Peritoneal Signs Genitourinary/Pelvic Exam: Present: Normal External Genitalia, Vaginal Bleeding , Adenexal Tenderness, Other (s/p morphine exam more focal left adnexal ttp/ reproductive of her pelvic pain ) Back: Present: Normal Inspection Upper Extremity: Present: Normal Inspection. No: Cyanosis, Edema Lower Extremity: Present: Normal Inspection. No: Edema Neurological: Present: GCS=15, CN II-XII Intact, Speech Normal, Motor Func Grossly Intact, Normal Sensory Function, Normal Cerebellar Funct, Norm Deep Tendon Reflexes, Normal 2Pt Descrimination Skin: Present: Warm, Dry, Normal Color. No: Rashes Psychiatric: Present: Alert, Oriented x 3, Normal Insight, Normal Concentration Medical Decision Making ED Course and Treatment: 03/01/17 07:10 The patient is transferred over to in by Dr. Romero, the patient is pending labs, images, and reevaluation. 03/01/17 11:12 I preformed a pelvic exam chaperoned by EMT Alma. Findings show a left side adnexal. Pain was treated in emergency department, the patient is not recommended to get a CT. 03/01/17 14:26 CT was not cancelled an error by Dr. Shepherd and pt . received ct scan anyways: ct scan shows left sided ovarian likley hejorrhagic cyst , and several left sided adnexal oavarian follicles. Pt currently on ocp's for her menorrhagia for which she has been noncompliant. Her pain is controleed and pt. has an director of retail doctor to follow up with . - Lab Interpretations Lab Results: 03/01/17 06:30 03/01/17 06:30 Lab Results 03/01/17 06:30: Sodium 142, Potassium 3.9, Chloride 108 H, Carbon Dioxide 23, Anion Gap 14, BUN 16, Creatinine 0.7, Est GFR ( Amer) > 60, Est GFR (Non- Af Amer) > 60, Random Glucose 98, Calcium 8.9, Total Bilirubin 0.4, AST 25, ALT 31, Alkaline Phosphatase 52, Total Protein 7.3, Albumin 4.0, Globulin 3.3, Albumin/Globulin Ratio 1.2, Lipase 146 03/01/17 06:30: Urine Color Yellow, Urine Appearance Sl cloudy, Urine pH 6.0, Ur Specific [place] >= 1.030, Urine Protein Trace H, Urine Glucose (UA) Negative , Urine Ketones Negative, Urine Blood Large H, Urine Nitrate Negative, Urine Bilirubin Negative, Urine Urobilinogen 0.2, Ur Leukocyte Esterase Negative, Urine RBC 20 - 25, Urine WBC 1 - 3, Ur Epithelial Cells 3 - 4, Urine Bacteria Rare, Urine HCG, Qual Negative 03/01/17 06:30: PT 11.8, INR 1.07, APTT 34.3 03/01/17 06:30: WBC 9.5, RBC 4.56, Hgb 13.4, Hct 39.5, MCV 86.6, MCH 29.4, MCHC 33.9, RDW 12.9, Plt Count 184, MPV 11.9 H - RAD Interpretation Radiology Orders: 03/01/17 06:51 ABD & PELVIS IV CONTRAST ONLY [CT] Stat 03/01/17 07:54 TRANSVAGINAL [US] Stat - Medication Orders Current Medication Orders: Discontinued Medications Sodium Chloride (Sodium Chloride 0.9%) 1,000 mls @ 999 mls/hr IV .Q1H1M STA Stop: 03/01/17 07:27 Last Admin: 03/01/17 06:37 Dose: 999 mls/hr eMAR Start Stop Document 03/01/17 06:37 AB (Rec: 03/01/17 06:39 AB [id number]) Intravenous Solution Start Date 03/01/17 Start Time 06:39 End Date 03/01/17 End time 07:09 Total Infusion Time 30 Ketorolac Tromethamine (Toradol) 30 mg IVP ONCE ONE Stop: 03/01/17 06:51 Last Admin: 03/01/17 06:59 Dose: 30 mg MAR Pain Assessment Document 03/01/17 06:59 AB (Rec: 03/01/17 07:00 AB [id number]) Pain Reassessment Is this a pain reassessment? Yes Sleep Is patient sleeping during reassessment? No Presence of Pain Presence of Pain Yes Pain Scale Used Pain Scale Used Numeric Location Left, Right or Bilateral Left Upper or Lower Lower Pain Location Body Site Abdomen Description Description Constant Intensity of Pain at present 6 Radiation Location RLQ Duration x one week Alleviating Factors/Management Medication Techniques Distraction Alleviating Factors Medication IVP Administration Document 03/01/17 06:59 AB (Rec: 03/01/17 07:00 [id number] Charges for Administration # of IVP Administrations 1 Morphine Sulfate (Morphine) 4 mg IVP STAT STA Stop: 03/01/17 07:38 Last Admin: 03/01/17 07:50 Dose: 4 mg MAR Pain Assessment Document 03/01/17 07:50 AB (Rec: 03/01/17 07:51 [id number] Pain Reassessment Is this a pain reassessment? Yes Sleep Is patient sleeping during reassessment? No Presence of Pain Presence of Pain Yes Pain Scale Used Pain Scale Used Numeric Location Left, Right or Bilateral Left Upper or Lower Lower Pain Location Body Site Abdomen Description Description Constant Intensity of Pain at present 5 Pain Behavior Moaning Guarding Aggravating Factors Changing Position Alleviating Factors/Management Medication Techniques Alleviating Factors Medication IVP Administration Document 03/01/17 07:50 AB (Rec: 03/01/17 07:51 [id number] Charges for Administration # of IVP Administrations 1 Ondansetron HCl (Zofran Inj) 4 mg IVP ONCE ONE Stop: 03/01/17 06:51 Last Admin: 03/01/17 06:59 Dose: 4 mg IVP Administration Document 03/01/17 06:59 AB (Rec: 03/01/17 06:59 AB [facility] [place]-[id number]) Charges for Administration # of IVP Administrations 1 - Scribe Statement The provider has reviewed the documentation as recorded by the Scribe Carlotta Ackerman Provider Scribe Attestation: All medical record entries made by the Scribe were at my direction and personally dictated by me. I have reviewed the chart and agree that the record accurately reflects my personal performance of the history, physical exam, medical decision making, and the department course for this patient. I have also personally directed, reviewed, and agree with the discharge instructions and disposition. Disposition/Present on Arrival - Present on Arrival Any Indicators Present on Arrival: No History of DVT/PE: No History of Uncontrolled Diabetes: No Urinary Catheter: No History of Decub. Ulcer: No History Surgical Site Infection Following: None - Disposition Have Diagnosis and Disposition been Completed?: Yes Diagnosis: Abdominal pain, Hemorrhagic cyst of left ovary, Menorrhagia Disposition: HOME/ ROUTINE Disposition Time: 14:30 Patient Plan: Discharge Patient Problems: Current Active Problems Problem Status Onset Abdominal pain Acute Condition: IMPROVED Discharge Instructions (ExitCare): Ovarian Cyst (ED), Menorrhagia (ED) Print Language: [place] Additional Instructions: Please follow up with your director of retail doctor. Take the pain medicine as needed and sparingly. Hot water compresses can also help. Prescriptions: Ibuprofen [Motrin Tab] 600 mg PO Q6 PRN #40 tab PRN Reason: Pain, Moderate (4-7) oxyCODONE/Acetaminophen [Percocet 5/325 mg Tab] 1 ea PO Q6 PRN #14 tab PRN Reason: Pain, Severe (8-10) Referrals: Yvon Geller DO [Staff Provider] - Follow up with primary Forms: [facility] (Guamanian), SCHOOL NOTE, WORK NOTE
[2017-03-01 11:19] VITALS: RESP 16
--- NOTE | 2017-03-01 13:47 | CT ---
PROCEDURE: CT Abdomen and Pelvis with contrast HISTORY: abdominal pain COMPARISON: None. TECHNIQUE: Contrast dose: 100 cc of Omni 350 Radiation dose: Total exam DLP = 411 mGy-cm. This CT exam was performed using one or more of the following dose reduction techniques: Automated exposure control, adjustment of the mA and/or kV according to patient size, and/or use of iterative reconstruction technique. FINDINGS: LOWER THORAX: Unremarkable. LIVER: Unremarkable. No gross lesion or ductal dilatation. GALLBLADDER AND BILE DUCTS: Unremarkable. PANCREAS: Unremarkable. No gross lesion or ductal dilatation. SPLEEN: Unremarkable. ADRENALS: Unremarkable. No mass. KIDNEYS AND URETERS: Unremarkable. No hydronephrosis. No solid mass. VASCULATURE: Unremarkable. No aortic aneurysm. BOWEL: Unremarkable. No obstruction. No gross mural thickening. APPENDIX: Normal appendix. PERITONEUM: Unremarkable. No free fluid. No free air. LYMPH NODES: Unremarkable. No enlarged lymph nodes. BLADDER: Unremarkable. REPRODUCTIVE: Bilateral ovarian cysts are seen as well as a small amount of fluid in the cul-de-sac consistent with recent cyst rupture. The uterus is normal in appearance BONES: No acute fracture. OTHER FINDINGS: None. IMPRESSION: Bilateral ovarian cysts with a small amount of fluid in the cul-de-sac consistent with cyst rupture.
[2017-03-01 16:20] VITALS: BP 117/67; PULSE 68; O2SAT 100
== END 2017-03-01 16:15 | disposition home or self-care (01) ==
LOC: ED 05:57
DX: R10.9 Unspecified abdominal pain (principal)
CPT/HCPCS: 74177; 76830; 80053; 81001; 83690; 84703; 85027; 85610; 85730; 96374; 96375; 99285; J1885; J2270; J2405; J7040; Q9967

== ENCOUNTER 2017-08-05 19:06 | Inpatient (IN) | payer MEDICAID ==
[2017-08-05 19:19] VITALS: BMI 25.6
[2017-08-05 19:58] LABS: BASO # 0.03 K/mm3 (0.0-2.0); BASO % 0.3 % (0.0-3.0); EOS # 0.1 (0.0-0.7); EOS % 0.8 % (1.5-5.0); GRAN # 6.44 (1.4-6.5); GRAN % 61.1 % (50.0-68.0); HEMOGLOBIN 14.8 g/dL (12.0-16.0); LYMPH # 3.4 (1.2-3.4); LYMPH % 32.5 % (22.0-35.0); MEAN CELL VOLUME 85.3 fl (80.0-105.0); MEAN CORPUSCULAR HEMOGLOBIN 29.8 pg (25.0-35.0); MEAN CORPUSCULAR HGB CONC 34.9 g/dl (31.0-37.0); MEAN PLATELET VOLUME 11.4 fl (7.0-11.0); MONO # 0.6 (0.1-0.6); MONO % 5.3 % (1.0-6.0); RBC 4.97 10^6/uL (3.5-6.1); RED CELL DISTRIBUTION WIDTH 12.6 % (11.5-14.5); WHITE BLOOD COUNT 10.5 10^3/ul (4.5-11.0)
[2017-08-05 20:09] LABS: ACETAMINOPHEN < 10.0 ug/ml (10.0-20.0); SALICYLATE < 1 mg/dL (2.0-20.0)
[2017-08-05 20:13] LABS: URINE BILIRUBIN NEGATIVE (NEGATIVE); URINE BLOOD MODERATE (NEGATIVE); URINE GLUCOSE (UA) NEGATIVE (NEGATIVE); URINE LEUKOCYTE ESTERASE NEGATIVE Leu/uL (NEGATIVE); URINE PROTEIN NEGATIVE mg/dL (<30 mg/dL); URINE UROBILINOGEN 0.2 E.U./dL (<1 E.U./dL)
[2017-08-05 20:20] LABS: ALB/GLOB RATIO 1.1 (1.1-1.8); ALBUMIN 4.1 g/dL (3.0-4.8); ALT/SGPT 30 U/L (7-56); AST/SGOT 22 U/L (14-36); BLOOD UREA NITROGEN 10 mg/dL (7-21); CALCIUM 9.1 mg/dL (8.4-10.5); GFR AFRICAN-AMERICAN > 60; GFR NON-AFRICAN AMERICAN > 60
--- NOTE | 2017-08-05 20:24 | ED PDOC ---
Arrival/HPI - General Chief Complaint: Psychiatric Evaluation Time Seen by Provider: 08/05/17 19:10 Historian: Patient - History of Present Illness Narrative History of Present Illness (Text): 08/05/17 20:23 A 21 year old female, whose past medical history includes asthma, presents to the emergency department for evaluation of suicidal ideation. Patient was brought in by EMS and [facility] for suicidal attempt. Patient stated she took 10 tablets of Aleve about two hours ago in an attempt to kill herself. Patient denies any other complaints at this time. Symptom Onset: Sudden Symptom Course: Unchanged Activities at Onset: Rest Context: Home Past Medical History - Provider Review Nursing Documentation Reviewed: Yes - Past History Past History: No Previous - Infectious Disease Hx of Infectious Diseases: None - Tetanus Immunization Tetanus Immunization: Unknown - Cardiac Hx Cardiac Disorders: No - Pulmonary Hx Asthma: Yes - Neurological Hx Neurological Disorder: Yes Hx Syncope: Yes - HEENT Hx HEENT Disorder: No - Renal Hx Renal Disorder: No - Endocrine/Metabolic Hx Endocrine Disorders: No - Hematological/Oncological Hx Blood Disorders: No - Integumentary Hx Dermatological Disorder: No - Musculoskeletal/Rheumatological Hx Musculoskeletal Disorders: Yes Hx Falls: Yes - Gastrointestinal Hx Gastrointestinal Disorders: No - Genitourinary/Gynecological Hx Genitourinary Disorders: No Other/Comment: [employer]PL[employer] doctors: Dr Anne/Dr Michel...last seen before her trip to [facility] a few weeks ago. Benign Ovarian Cyst history - Psychiatric Hx Depression: Yes Hx Substance Use: No - Past Surgical History Past Surgical History: No Previous - Anesthesia Hx Anesthesia: No Hx Anesthesia Reactions: No - Suicidal Assessment Feels Threatened In Home Enviroment: No Family/Social History - Physician Review Nursing Documentation Reviewed: Yes Family/Social History: No Known Family HX Smoking Status: Never Smoked Hx Alcohol Use: No Hx Substance Use: No Hx Substance Use Treatment: No Allergies/Home Meds Allergies/Adverse Reactions: Allergies No Known Allergies Allergy (Verified 08/05/17 23:44) Home Medications: Home Meds Medication Instructions Recorded Confirmed Biotin [Hard Nails] 5,000 mcg PO DAILY 08/05/17 08/05/17 Escitalopram Oxalate [Lexapro] 5 mg PO DAILY 08/05/17 08/05/17 MedroxyPROGESTERone [Depo-Provera] 150 mg IM Q3M 08/05/17 08/05/17 Review of Systems - Physician Review All systems were reviewed & negative as marked: Yes - Review of Systems Constitutional: absent: Fevers Respiratory: absent: SOB Physical Exam Vital Signs Reviewed: Yes Vital Signs Temp Pulse Resp BP Pulse Ox 08/05/17 19:34 98.2 F 70 18 126/64 100 Temperature: Afebrile Blood Pressure: Normal Pulse: Regular Respiratory Rate: Normal Appearance: Positive for: Well-Appearing, Non-Toxic, Comfortable Pain Distress: None Mental Status: Positive for: Alert and Oriented X 3 - Systems Exam Head: Present: Atraumatic, Normocephalic Pupils: Present: PERRL Extroacular Muscles: Present: EOMI Conjunctiva: Present: Normal Mouth: Present: Moist Mucous Membranes Neck: Present: Normal Range of Motion Respiratory/Chest: Present: Clear to Auscultation, Good Air Exchange. No: Respiratory Distress, Accessory Muscle Use Cardiovascular: Present: Regular Rate and Rhythm, Normal S1, S2. No: Murmurs Abdomen: No: Tenderness, Distention, Peritoneal Signs Back: Present: Normal Inspection Upper Extremity: Present: Normal Inspection. No: Cyanosis, Edema Lower Extremity: Present: Normal Inspection. No: Edema Neurological: Present: GCS=15, CN II-XII Intact, Speech Normal Skin: Present: Warm, Dry, Normal Color. No: Rashes Psychiatric: Present: Alert, Oriented x 3, Normal Insight, Normal Concentration Medical Decision Making ED Course and Treatment: 08/05/17 20:22 Impression: A 21 year old female with suicidal ideation. Plan: -- EKG -- labs -- Urinalysis -- Reassess and disposition Prior Visits: Notes and results from previous visits were reviewed. Patient was last seen in the emergency department on 03/01/17 for evaluation of abdominal pain, nausea and vomiting. Progress Notes: Reviewed EKG, NSR at [address]-segment elevations or depressions, no T-wave inversions, normal intervals. 08/05/17 21:21 Pt seen and evaluated by CANDIDA Choe, who discussed case with psychiatrist national investigative producer. Pt will be admitted to Behavioral [facility] for depression under Dr. Marina's service. Pt agreeable with plan. - Lab Interpretations Lab Results: 08/05/17 19:49 08/05/17 19:49 Lab Results 08/05/17 19:59: Urine Opiates Screen Negative, Urine Methadone Screen Negative, Ur Barbiturates Screen Negative, Ur Phencyclidine Scrn Negative, Ur Amphetamines Screen Negative, U Benzodiazepines Scrn Negative, U Oth Cocaine Metabols Negative, U Cannabinoids Screen Negative 08/05/17 19:59: Urine Color Light yellow, Urine Appearance Clear, Urine pH 6.0, Ur Specific [place] 1.010, Urine Protein Negative, Urine Glucose (UA) Negative, Urine Ketones Negative, Urine Blood Moderate H, Urine Nitrate Negative, Urine Bilirubin Negative, Urine Urobilinogen 0.2, Ur Leukocyte Esterase Negative, Urine RBC 2 - 5, Urine WBC 0 - 2, Ur Epithelial Cells 1 - 3, Urine Bacteria Mod 08/05/17 19:49: Alcohol, Quantitative < 10 08/05/17 19:49: Salicylates < 1 L, Acetaminophen < 10.0 L 08/05/17 19:49: Sodium 142, Potassium 4.3, Chloride 106, Carbon Dioxide 23, Anion Gap 18, BUN 10, Creatinine 0.8, Est GFR ( Amer) > 60, Est GFR (Non- Af Amer) > 60, Random Glucose 98, Calcium 9.1, Magnesium 1.9, Total Bilirubin 0.4, AST 22, ALT 30, Alkaline Phosphatase 68, Total Protein 7.6, Albumin 4.1, Globulin 3.6, Albumin/Globulin Ratio 1.1 08/05/17 19:49: WBC 10.5, RBC 4.97, Hgb 14.8, Hct 42.4, MCV 85.3, MCH 29.8, MCHC 34.9, RDW 12.6, Plt Count 202, MPV 11.4 H, Gran % 61.1, Lymph % (Auto) 32.5 , Cassia % (Auto) 5.3, Eos % (Auto) 0.8 L, Baso % (Auto) 0.3, Gran # 6.44, Lymph # (Auto) 3.4, [place] # (Auto) 0.6, Eos # (Auto) 0.1, Baso # (Auto) 0.03 I have reviewed the lab results: Yes - RAD Interpretation Informatics Pharmacist: ED Physician - EKG Interpretation Interpreted by ED Physician: Yes Type: 12 lead EKG - Medication Orders Current Medication Orders: Acetaminophen (Tylenol 325mg Tab) 650 mg PO Q6H PRN PRN Reason: Pain, moderate (4-7) Al Hydrox/Mg Hydrox/Simethicone (Maalox Plus 30 Ml) 30 ml PO DAILY PRN PRN Reason: Indigestion / Heartburn Fluoxetine HCl (Prozac) 10 mg PO DAILY [facility] Last Admin: 08/06/17 12:25 Dose: 10 mg Magnesium Hydroxide (Milk Of Magnesia) 30 ml PO DAILY PRN PRN Reason: Constipation Zaleplon (Sonata) 5 mg PO HS PRN PRN Reason: Insomnia Discontinued Medications Al Hydrox/Mg Hydrox/Simethicone (Maalox Plus 30 Ml) 30 ml PO STAT STA Stop: 08/05/17 20:45 Last Admin: 08/05/17 20:51 Dose: 30 ml Escitalopram Oxalate (Lexapro) 5 mg PO DAILY [facility] Last Admin: 08/06/17 08:11 Dose: 5 mg Pantoprazole Sodium (Protonix Ec Tab) 20 mg PO ONCE ONE Stop: 08/05/17 20:45 Last Admin: 08/05/17 20:51 Dose: 20 mg - Scribe Statement The provider has reviewed the documentation as recorded by the Janet Valderrama Provider Scribe Attestation: All medical record entries made by the Janet were at my direction and personally dictated by me. I have reviewed the chart and agree that the record accurately reflects my personal performance of the history, physical exam, medical decision making, and the department course for this patient. I have also personally directed, reviewed, and agree with the discharge instructions and disposition. Disposition/Present on Arrival - Present on Arrival Any Indicators Present on Arrival: No History of DVT/PE: No History of Uncontrolled Diabetes: No Urinary Catheter: No History of Decub. Ulcer: No History Surgical Site Infection Following: None - Disposition Have Diagnosis and Disposition been Completed?: Yes Diagnosis: Depression Disposition: HOSPITALIZED Disposition Time: 21:25 Patient Problems: Current Active Problems Problem Status Onset Borderline personality disorder in adult Acute MDD (major depressive disorder) Acute Condition: GOOD
[2017-08-05 20:33] LABS: BARBITURATES, UR NEGATIVE (NEGATIVE); BENZODIAZEPINES, UR NEGATIVE (NEGATIVE); OPIATES, UR NEGATIVE (NEGATIVE); PHENCYCLIDINE, UR NEGATIVE (NEGATIVE)
[2017-08-05 20:37] LABS: URINE APPEARANCE CLEAR (CLEAR); URINE COLOR LIGHT YELLOW (YELLOW)
[2017-08-05 20:38] LABS: URINE BACTERIA MOD (NEG)
[2017-08-05 20:39] LABS: URINE WBC 0 - 2 /hpf (0-6)
[2017-08-05] MEDS ORDERED: Alum-Mag Hydrox-Simethicone Susp (30 mL) PO STA (20:44)
[2017-08-05] MEDS ORDERED: Pantoprazole 20 mg EC Tab PO ONE (20:44)
[2017-08-05] MEDS ORDERED: Alum-Mag Hydrox-Simethicone Susp (30 mL) PO PRN (23:41)
[2017-08-05] MEDS ORDERED: Magnesium Hydroxide Susp 30 ml UD PO PRN (23:41)
[2017-08-06 00:07] VITALS: O2SAT 97
--- NOTE | 2017-08-06 01:52 | PCM.BM ---
<JonatanWally - Last Filed: 08/06/17 01:49> Treatment Plan Problems - Problems identified on initial assessmt Ineffective Coping Date Initiated: 08/05/17 Time Initiated: 23:00 Assessment reference: NA Status: Active Priority: 1 Hopelessness/Helplessness Date Initiated: 08/05/17 Time Initiated: 23:00 Assessment reference: NA Status: Active Priority: 2 Feelings of Worthlessness Date Initiated: 08/05/17 Time Initiated: 23:00 Assessment reference: NA Status: Active Priority: 3 Medication Nonadherence Date Initiated: 08/05/17 Time Initiated: 23:00 Assessment reference: NA Status: Active Priority: 4 Treatment assets and liabiliti Patient Assests: cooperative, educated, insightful, motivated, ADL independent, physically healthy, negotiates basic needs, cognitively intact, good interpersonal skills Patient Liabilities: poor support system, relationship conflicts - Milieu Protocol Maintain good personal hygiene: daily Encourage regular showers, every shift Remind patient to perform daily oral care, every shift Assist patient to perform ADL's Maintain personal safety: every shift Educate patient to report safety concerns to staff, every shift Monitor environment for contraband/sharps Medication safety: Monitor for expected outcome, potential side effects: every shift, Assess barriers to learning: every shift, Assess readiness for medication education: every shift Family Contact Family involvement: Family/SO is involved Family contact: Patient agrees to contact - Goals for Treatment Patient goals for treatment: "Want to be better" Discharge/Continuing Care - Education Needs Education Needs: Family Diagnosis/Disease Process, Family Coping Skills, Family Aftercare Safety Plan, Patient Medication, Patient Diagnosis/Disease Process, Patient Coping Skills, Patient Anger Management skills, Patient Placement options, Patient Community resources, Patient Activities of Daily Living, Patient Pain, Patient Nutrition, Patient Uses of Medical Equipment, Patient Health Practices/Safety, Patient Personal Hygiene/Grooming, Patient Aftercare Safety Plan - Discharge Discharge Criteria: Tolerates medication w/o severe side effects <Nikki Marina - Last Filed: 08/06/17 13:33> - Diagnosis (1) MDD (major depressive disorder) Status: Acute Interventions: 08/06/17 13:34 Psychoeducation Psychopharmacology/adjustment of medications as needed/ monitoring possible side effects Evaluate pt on daily basis Compliance with medications and follow up appointments Suicide and homicide risk assessment and prevention Relapse prevention Reduction of symptoms Improve functional status Family involvement As outpatient: cognitive behavioral therapy (2) Borderline personality disorder in adult Status: Acute Interventions: 08/06/17 13:34 Psychoeducation Psychopharmacology/adjustment of medications as needed/ monitoring possible side effects Evaluate pt on daily basis Compliance with medications and follow up appointments Suicide and homicide risk assessment and prevention, coping strategies, safety plan Relapse prevention Family involvement As outpatient: Transference-focused psychotherapy/dialectical behavioral therapy /schema therapy Mindfulness skills <Danielle Shanks Y - Last Filed: 08/07/17 14:28> Family Contact Family involvement: Family/SO is involved Family contact: Patient agrees to contact Family contact name: Christine Johns(mother) [phone] Family contacted how many times per week?: 2 - Outside Agency [facility] Care involvment: Following patient during stay, Information-sharing Agency contact name: [facility] Agency contact number: [phone]
[2017-08-06 07:07] VITALS: RESP 20
[2017-08-06 08:18] LABS: HDL CHOLESTEROL 33 mg/dL (29-60)
--- NOTE | 2017-08-06 08:20 | RAD ---
HISTORY: depression COMPARISON: 07/15/2016 FINDINGS: LUNGS: No active pulmonary disease. PLEURA: No significant pleural effusion identified, no pneumothorax apparent. CARDIOVASCULAR: Normal. OSSEOUS STRUCTURES: No significant abnormalities. VISUALIZED UPPER ABDOMEN: Normal. OTHER FINDINGS: None. IMPRESSION: No active disease.
[2017-08-06 08:28] LABS: LDL CHOLESTEROL 122 mg/dL (0-129)
[2017-08-06 08:37] LABS: GLUCOSE,FASTING 94 mg/dL (65-110)
--- NOTE | 2017-08-06 09:15 | CARD ---
APPROVED REPORT EKG Measurement Heart [id number] <Conclusion> Normal sinus rhythm Normal ECG
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
--- NOTE | 2017-08-07 12:26 | PCM.PYCHPN ---
Psychiatric Progress Note - Psychiatric Progress Note Patient seen today, length of contact: 25 min Problems Identified/Issues Discussed: I have reviewed assessment. Patient is 21 years old single female, no previous psychiatric admissions, 2 [id number] suicidal gestures in the past week, sporadically compliant with medications, seen by at [facility] [place] who was brought in by her family status post overdose on Aleve. I reviewed recent staff notes. Patient has been groomed and well-oriented to location, month, year and circumstances. Visible in the dayroom, socializing with other patients. Calm, cooperative and generally pleasant though does appear depressed (per some staff notes). I met with patient at bedside and again during treatment team meeting. Patient reports she is feeling improved since admission and indicates her mood is good and optimistic. Anxiety is under control. Her affect is constricted however demonstrating some reactivity. She is generally related it without any peculiarities with her responses. Patient does not appear apathetic, hopeless, internally preoccupied or overly labile. Her responses are coherent and relevant to questioning. Patient reports that she is sleeping well and tolerating her medications. She denies any new discomfort or pain and appears to be comfortable without any distress. Her insight and judgment are improving Diagnostic Results: r/o mdd r/o severe borderline personality disorder Mental Status Examination - Cognitive Function Orientation: Person, Place, Situation, Time Attention: WNL Concentration: WNL Association: WNL - Mood Mood: Depressed (improving) - Affect Affect: Constricted - Formal Thought Process Formal Thought Process: No Impairment - Suicidal Ideation Suicidal Ideation: No - Homicidal Ideation Homicidal Ideation: No Goal/Treatment Plan - Goal/Treatment Plan Progress Toward Problem(s) and Goals/Treatment Plan: * c/w current tx and plan * No new labs thus far today * Vitals reviewed and noted below: Selected Entries 08/07/17 06:42 Temperature 98.2 F Pulse Rate 70 Respiratory 20 Rate Blood Pressure 94/41 L
--- NOTE | 2017-08-08 09:37 | PCM.PYCHPN ---
Psychiatric Progress Note - Psychiatric Progress Note Patient seen today, length of contact: 25 min Problems Identified/Issues Discussed: I have reviewed assessment. Patient is 21 years old single female, no previous psychiatric admissions, 2 [id number] suicidal gestures in the past week, sporadically compliant with medications, seen by at [facility] [place] who was brought in by her family status post overdose on Aleve. I reviewed recent staff notes. Patient has been groomed and well-oriented to location, month, year and circumstances. Visible in the dayroom, socializing with other patients. Calm, cooperative and generally pleasant though does appear depressed (per some staff notes). I met with patient at bedside. Patient continues to report that she is feeling improved since admission and indicates her mood is good and optimistic. Anxiety is under control. Her affect is constricted however demonstrating some reactivity. She is generally related without any peculiarities with her responses. Patient does not appear apathetic, hopeless, internally preoccupied or overly labile. Her responses are coherent and relevant to questioning. Patient reports that she is sleeping well and tolerating her medications. She denies any new discomfort or pain and appears to be comfortable without any distress. Her insight and judgment are improving Appreciate Danielle's f/u with patient's mother. SW discussed pt's desire to be discharged today. Pt's mother disagreed with discharge as she felt that patient should complete her treatment course on the unit. I am in agreement with patient's mother. Apparently patient tried to commit suicide on two occasions in the past week due to conflicts with her boyfriend and family. Unless patient isn't being completely forthcoming (patient does have history of "breaking promises" and lying), these stressors aren't very serious or significant. Diagnostic Results: r/o mdd r/o severe borderline personality disorder Medication Change: No Medical Record Reviewed: Yes Mental Status Examination - Cognitive Function Orientation: Person, Place, Situation, Time Attention: WNL Concentration: WNL Association: WNL - Mood Mood: Depressed (improving) - Affect Affect: Constricted - Formal Thought Process Formal Thought Process: No Impairment - Suicidal Ideation Suicidal Ideation: No - Homicidal Ideation Homicidal Ideation: No Goal/Treatment Plan - Goal/Treatment Plan Progress Toward Problem(s) and Goals/Treatment Plan: * c/w current tx and plan * No new labs thus far today * Vitals reviewed and noted below: Selected Entries 08/08/17 06:53 Temperature 97.5 F L Pulse Rate 73 Respiratory 20 Rate Blood Pressure 102/60 * Patient put in a 48 hour letter on 08/08/17 at 7:25 am. * Appreciate Danielle's f/u with patient's mother. SW discussed pt's desire to be discharged today. Pt's mother disagreed with discharge as she felt that patient should complete her treatment on the unit. * I am in agreement with patient's mother. Apparently patient tried to commit suicide on two occasions in the past week due to conflicts with her boyfriend and family. Unless patient isn't being completely forthcoming (patient does have history of "breaking promises" and lying), these stressors aren't very serious or significant. [place] [facility]
--- NOTE | 2017-08-09 09:48 | PCM.PYCHPN ---
Psychiatric Progress Note - Psychiatric Progress Note Patient seen today, length of contact: 25 min Problems Identified/Issues Discussed: I have reviewed assessment. Patient is 21 years old single female, no previous psychiatric admissions, 2 [id number] suicidal gestures in the past week, sporadically compliant with medications, seen by Dr. Guzman at [facility] at [place] who was brought in by her family status post overdose on Aleve. I reviewed recent staff notes. Patient has been groomed and well-oriented to location, month, year and circumstances. Visible in the dayroom, socializing with other patients. Calm, cooperative, generally pleasant and appears less depressed. I met with patient at bedside. Patient continues to report that she is feeling improved since admission and indicates her mood is good and optimistic. Anxiety is under control. Her affect is constricted however demonstrating some reactivity. She is generally related without any peculiarities with her responses. Patient does not appear apathetic, hopeless, internally preoccupied or overly labile. Her responses are coherent and relevant to questioning. Patient reports that she is sleeping well and tolerating her medications. She denies any new discomfort or pain and appears to be comfortable without any distress. Her insight and judgment are improving Patient refuses to retract her 48 hour letter. [facility] [place] interviewed patient early this morning and did not find that she met involuntary commitment criteria, therefore patient will be discharged AMA tomorrow. Diagnostic Results: r/o mdd r/o severe borderline personality disorder Medication Change: No Medical Record Reviewed: Yes Mental Status Examination - Cognitive Function Orientation: Person, Place, Situation, Time Attention: WNL Concentration: WNL Association: WNL - Mood Mood: Depressed (improving) - Affect Affect: Constricted (more reactive) - Speech Speech: Appropriate - Formal Thought Process Formal Thought Process: No Impairment - Suicidal Ideation Suicidal Ideation: No - Homicidal Ideation Homicidal Ideation: No Goal/Treatment Plan - Goal/Treatment Plan Progress Toward Problem(s) and Goals/Treatment Plan: * c/w current tx and plan * No new labs thus far this weekend * Vitals reviewed and noted below: Selected Entries 08/09/17 06:59 Temperature 97.7 F Pulse Rate 74 Respiratory 20 Rate Blood Pressure 90/55 L * Patient put in a 48 hour letter on 08/08/17 at 7:25 am and she refuses to retract her 48 hour letter. * Appreciate Danielle's f/u with patient's mother. SW discussed pt's desire to be discharged today. Pt's mother disagreed with discharge as she felt that patient should complete her treatment on the unit. * [facility] screen[place] interviewed patient early in the AM on 08/10/27 and did not find that she met involuntary commitment criteria, therefore patient will be discharged AMA tomorrow
[2017-08-10 06:32] VITALS: BP 100/56; PULSE 68; TEMP 97.8
--- NOTE | 2017-08-10 09:26 | PCM.PYCHDC ---
Mental Status Examination - Mental Status Examination Orientation: Person, Place, Situation Memory: Intact Mood: Neutral Affect: Constricted Speech: Appropriate Attention: WNL Concentration: WNL Association: WNL Fund of Knowledge: WNL Formal Thought Process: No Impairment Description of patient's judgement and insight: Improved and fair judgment, poor insight Psychotic Thoughts and Behaviors: Patient denied any perceptual disturbance at discharge, specifically denied AVH or paranoid thoughts. Delusions were not elicited. Suicidal Ideation: No Current Homicidal Ideation?: No Discharge Summary - Discharge Note Reason for Hospitalization: Patient is 21 years old single female, no previous psychiatric admissions, 2 [id number] suicidal gestures in the past week, sporadically compliant with medications, seen by at [facility] who was brought in by her family status post overdose on Aleve. Psychiatric History (includes Medical, Family, Personal Hx): see HPI Laboratory Data: Laboratory Tests 08/05/17 08/05/17 08/05/17 19:49 19:49 19:49 WBC 10.5 RBC 4.97 Hgb 14.8 Hct 42.4 MCV 85.3 MCH 29.8 MCHC 34.9 RDW 12.6 Plt Count 202 MPV 11.4 H Gran % 61.1 Lymph % (Auto) 32.5 [place] % (Auto) 5.3 Eos % (Auto) 0.8 L Baso % (Auto) 0.3 Gran # 6.44 Lymph # (Auto) 3.4 [place] # (Auto) 0.6 Eos # (Auto) 0.1 Baso # (Auto) 0.03 Sodium 142 Potassium 4.3 Chloride 106 Carbon Dioxide 23 Anion Gap 18 BUN 10 Creatinine 0.8 Est GFR ( Amer) > 60 Est GFR (Non-Af Amer) > 60 Random Glucose 98 Fasting Glucose Calcium 9.1 Magnesium 1.9 Total Bilirubin 0.4 AST 22 ALT 30 Alkaline Phosphatase 68 Total Protein 7.6 Albumin 4.1 Globulin 3.6 Albumin/Globulin Ratio 1.1 Triglycerides Cholesterol LDL Cholesterol Direct HDL Cholesterol TSH 3rd Generation Urine Color Urine Appearance Urine pH Ur Specific [place] Urine Protein Urine Glucose (UA) Urine Ketones Urine Blood Urine Nitrate Urine Bilirubin Urine Urobilinogen Ur Leukocyte Esterase Urine RBC Urine WBC Ur Epithelial Cells Urine Bacteria Salicylates < 1 L Urine Opiates Screen Urine Methadone Screen Acetaminophen < 10.0 L Ur Barbiturates Screen Ur Phencyclidine Scrn Ur Amphetamines Screen U Benzodiazepines Scrn U Oth Cocaine Metabols U Cannabinoids Screen Alcohol, Quantitative RPR 08/05/17 08/05/17 08/05/17 19:49 19:59 19:59 WBC RBC Hgb Hct MCV MCH MCHC RDW Plt Count MPV Gran % Lymph % (Auto) [place] % (Auto) Eos % (Auto) Baso % (Auto) Gran # Lymph # (Auto) [place] # (Auto) Eos # (Auto) Baso # (Auto) Sodium Potassium Chloride Carbon Dioxide Anion Gap BUN Creatinine Est GFR ( Amer) Est GFR (Non-Af Amer) Random Glucose Fasting Glucose Calcium Magnesium Total Bilirubin AST ALT Alkaline Phosphatase Total Protein Albumin Globulin Albumin/Globulin Ratio Triglycerides Cholesterol LDL Cholesterol Direct HDL Cholesterol TSH 3rd Generation Urine Color Light yellow Urine Appearance Clear Urine pH 6.0 Ur Specific [place] 1.010 Urine Protein Negative Urine Glucose (UA) Negative Urine Ketones Negative Urine Blood Moderate H Urine Nitrate Negative Urine Bilirubin Negative Urine Urobilinogen 0.2 Ur Leukocyte Esterase Negative Urine RBC 2 - 5 Urine WBC 0 - 2 Ur Epithelial Cells 1 - 3 Urine Bacteria Mod Salicylates Urine Opiates Screen Negative Urine Methadone Screen Negative Acetaminophen Ur Barbiturates Screen Negative Ur Phencyclidine Scrn Negative Ur Amphetamines Screen Negative U Benzodiazepines Scrn Negative U Oth Cocaine Metabols Negative U Cannabinoids Screen Negative Alcohol, Quantitative < 10 RPR 08/06/17 08/06/17 08/06/17 07:15 07:15 08:00 WBC RBC Hgb Hct MCV MCH MCHC RDW Plt Count MPV Gran % Lymph % (Auto) [place] % (Auto) Eos % (Auto) Baso % (Auto) Gran # Lymph # (Auto) [place] # (Auto) Eos # (Auto) Baso # (Auto) Sodium Potassium Chloride Carbon Dioxide Anion Gap BUN Creatinine Est GFR ( Amer) Est GFR (Non-Af Amer) Random Glucose Fasting Glucose 94 Calcium Magnesium Total Bilirubin AST ALT Alkaline Phosphatase Total Protein Albumin Globulin Albumin/Globulin Ratio Triglycerides 108 Cholesterol 183 LDL Cholesterol Direct 122 HDL Cholesterol 33 TSH 3rd Generation 2.12 Urine Color Urine Appearance Urine pH Ur Specific [place] Urine Protein Urine Glucose (UA) Urine Ketones Urine Blood Urine Nitrate Urine Bilirubin Urine Urobilinogen Ur Leukocyte Esterase Urine RBC Urine WBC Ur Epithelial Cells Urine Bacteria Salicylates Urine Opiates Screen Urine Methadone Screen Acetaminophen Ur Barbiturates Screen Ur Phencyclidine Scrn Ur Amphetamines Screen U Benzodiazepines Scrn U Oth Cocaine Metabols U Cannabinoids Screen Alcohol, Quantitative RPR Nonreactive Consultations:: List each consultation separately and include: 1. Reason for request. 2. Findings. 3. Follow-up Consultations: NONE REQUESTED Summary of Hospital Course include:: 1. Description of specific treatment plan utilized for patients during their course of treatmen. 2. Summarize the time- course for resolution of acute symptoms and/or regressed behaviors. 3. Describe issues identified and worked on during hospitalization. 4. Describe medication utilized. 5. Describe medical problems identified and treated. 6. Reassessment of suicide risk Summary of Hospital Course: Patient has been groomed and well-oriented to location, month, year and circumstances. She was initially emotional and marquez on the unit however became much more pleasant, friendly and calm throughout admission. She was visible in the dayroom, socializing with other patients and attending groups. There were conflicts with other patients. Patient's reactivity improved but affect was still constricted during course. Nonetheless she did not appear apathetic, hopeless, internally preoccupied or overly labile. Her responses were always coherent and relevant to questioning. Patient reported that she is sleeping fairly well (with some nondistressing restlessness) and tolerating her medications. She denied any new discomfort or pain and appears to be comfortable without any distress. Patient refused to retract her 48 hour letter placed on 08/08/17. [facility] screeners interviewed patient on 08/09/17 on and did not find that she met involuntary commitment criteria, therefore patient was discharged AMA on 08/10/17. - Final Diagnosis (DSM 5) Condition upon Discharge: IMPROVED DSM 5: r/o mdd Borderline personality disorder Disposition: AGAINST MEDICAL ADVICE Follow-up Treatment Plan: * Patient put in a 48 hour letter on 08/08/17 at 7:25 am and she refuses to retract her 48 hour letter. * Appreciate Danielle's f/u with patient's mother. SW discussed pt's desire to be discharged today. Pt's mother disagreed with discharge as she felt that patient should complete her treatment on the unit. * [facility] screeners interviewed patient early in the AM on 08/10/27 and did not find that she met involuntary commitment criteria, therefore patient is discharged AMA PER 05/25/18 - Social Work Progress Note by Danielle Shanks and patient contacted [facility] to verify follow up appointment. Patient to follow up at [facility] on August 19, 2017 at 8:30 am with therapist Dolores Dia and psychiatrist, Dr. Guzman on September 09, 2017 at 10:30am. DAISHA instructed patient to go to [facility] to obtain emergency prescription if she runs out of medications before follow up appointment. PT provided with information for [facility]. DAISHA discussed a Suicide Safety Plan with patient. Pt provided with contact information for the Suicide Hotline. This provider called Floresita Cabrera at [phone] at 9:10 am on 08/10/17 and authorized a 14 day supply of Prozac 10 mg po daily + 1 RF. Prescriptions/Medication Reconciliation: FLUoxetine [Prozac] 10 mg PO DAILY #14 cap Zaleplon [Sonata] 5 mg PO HS PRN #14 cap PRN Reason: Insomnia - Smoking Cessation Smoking Cessation Medication prescribed: No Reason for not providing: PATIENT DOES NOT SMOKE - Antipsychotic Medications Pt discharged on 2 or more routine antipsychotic medications: No
== END 2017-08-10 14:49 | disposition left against medical advice (07) | DRG 426 ==
LOC: ED 19:06 → PSYC 21:20
PROVIDERS: ADMIT Psychiatry & Neurology Psychiatry; ATTEND Psychiatry & Neurology Psychiatry
DX: F32.9 Major depressive disorder, single episode, unspecified (principal); F60.3 Borderline personality disorder; F41.9 Anxiety disorder, unspecified; Z81.8 Family history of other mental and behavioral disorders

== ENCOUNTER 2017-11-07 03:09 | Emergency (ER) | payer MEDICAID ==
[2017-11-07 03:09] VITALS: BMI 25.6
[2017-11-07] MEDS ORDERED: Sodium Chloride 0.9% 1,000 ML IV SCH (04:15)
--- NOTE | 2017-11-07 04:37 | ED PDOC ---
Arrival/HPI - General Chief Complaint: Abdominal Pain Time Seen by Provider: 11/07/17 04:03 - History of Present Illness Narrative History of Present Illness (Text): 11/07/17 04:52 21 yr old female p/w abdominal pain. Abdominal pain started 4d ago, however recently worsened, diffuse, bust mostly suprapubic radiating to b/l flank. Throbbing and stabbing. She notes multiple episodes of nbnb vomiting today. She denies any dysuria, urgency or frequency. No dark or bloody stools. No vaginal d /c, no rashes, no hx of STI. No trauma or falls. No chest pain or shortness of breath. No other complaints. Past Medical History - Past History Past History: No Previous - Infectious Disease Hx of Infectious Diseases: None - Tetanus Immunization Tetanus Immunization: Unknown - Cardiac Hx Cardiac Disorders: No - Pulmonary Hx Asthma: Yes - Neurological Hx Neurological Disorder: Yes Hx Syncope: Yes - HEENT Hx HEENT Disorder: No - Renal Hx Renal Disorder: No - Endocrine/Metabolic Hx Endocrine Disorders: No - Hematological/Oncological Hx Blood Disorders: No - Integumentary Hx Dermatological Disorder: No - Musculoskeletal/Rheumatological Hx Musculoskeletal Disorders: Yes Hx Falls: Yes - Gastrointestinal Hx Gastrointestinal Disorders: No - Genitourinary/Gynecological Hx Genitourinary Disorders: No Other/Comment: CASEWORK MANAGER doctors: Dr Anne/Dr Michel...last seen before her trip to [facility] a few weeks ago. Benign Ovarian Cyst history - Psychiatric Hx Depression: No Hx Substance Use: No - Past Surgical History Past Surgical History: No Previous - Anesthesia Hx Anesthesia: No Hx Anesthesia Reactions: No - Suicidal Assessment Feels Threatened In Home Enviroment: No Family/Social History Family/Social History: Unknown Family HX Smoking Status: Never Smoked Hx Alcohol Use: No Hx Substance Use: No Hx Substance Use Treatment: No Allergies/Home Meds Allergies/Adverse Reactions: Allergies No Known Allergies Allergy (Verified 08/05/17 23:44) Home Medications: Home Meds Medication Instructions Recorded Confirmed No Known Home Med 11/07/17 11/07/17 Review of Systems - Review of Systems Constitutional: Normal Eyes: Normal ENT: Normal Respiratory: Normal Cardiovascular: Normal Gastrointestinal: Abdominal Pain, Nausea, Vomiting Genitourinary Female: Normal Musculoskeletal: Back Pain Skin: Normal Neurological: Normal Endocrine: Normal Hemo/Lymphatic: Normal Psychiatric: Normal Physical Exam Vital Signs Temp Pulse Resp BP Pulse Ox 11/07/17 04:57 72 18 113/68 100 11/07/17 03:19 98.1 F 76 19 126/86 99 Temperature: Afebrile Blood Pressure: Normal Pulse: Regular Respiratory Rate: Normal Appearance: Positive for: Well-Appearing Pain Distress: None Mental Status: Positive for: Alert and Oriented X 3 - Systems Exam Head: Present: Atraumatic, Normocephalic Pupils: Present: PERRL Extroacular Muscles: Present: EOMI Conjunctiva: Present: Normal Mouth: Present: Moist Mucous Membranes Neck: Present: Normal Range of Motion Respiratory/Chest: Present: Clear to Auscultation, Good Air Exchange. No: Respiratory Distress, Accessory Muscle Use Cardiovascular: Present: Regular Rate and Rhythm, Normal S1, S2. No: Murmurs Abdomen: Present: Tenderness (diffuse). No: Distention, Peritoneal Signs Back: Present: CVA Tenderness Upper Extremity: Present: Normal Inspection. No: Cyanosis, Edema Lower Extremity: Present: Normal Inspection. No: Edema Neurological: Present: GCS=15, CN II-XII Intact, Speech Normal Skin: Present: Warm, Dry, Normal Color. No: Rashes Psychiatric: Present: Alert, Oriented x 3, Normal Insight, Normal Concentration Medical Decision Making ED Course and Treatment: 11/07/17 05:06 21 yr old female p/w diffuse abdominal pain, diffusely tender across abdomen. Given diffuse nature as well as suprapubic pain, ?2/2 UTI w/ pyelo. No hx of STDS or vaginal d/c, u/l STI related. Will seek imaging, labs and pain control. 11/07/17 06:35 CT unremarkable US unremarkable labs unremarkable pending urine. 11/07/17 06:47 pain improved. tolerating clears urine unremarkable clear for d/c home - Lab Interpretations Lab Results: 11/07/17 04:30 11/07/17 04:30 Lab Results 11/07/17 05:00: Urine Color Light yellow, Urine Appearance Clear, Urine pH 6.0, Ur Specific [place] >= 1.030, Urine Protein Negative, Urine Glucose (UA) Negative, Urine Ketones Negative, Urine Blood Trace-intact H, Urine Nitrate Negative, Urine Bilirubin Negative, Urine Urobilinogen 0.2, Ur Leukocyte Esterase Negative, Urine RBC Pending, Urine WBC Pending 11/07/17 04:30: Sodium 143, Potassium 4.1, Chloride 108 H, Carbon Dioxide 23, Anion Gap 17, BUN 16, Creatinine 0.7, Est GFR ( Amer) > 60, Est GFR (Non- Af Amer) > 60, Random Glucose 91, Calcium 9.1, Total Bilirubin 0.4, AST 21, ALT 22, Alkaline Phosphatase 56, Total Protein 7.5, Albumin 4.1, Globulin 3.3, Albumin/Globulin Ratio 1.2, Lipase 152 11/07/17 04:30: WBC 7.9 D, RBC 4.69, Hgb 13.8, Hct 41.1, MCV 87.6, MCH 29.4, MCHC 33.6, RDW 13.3, Plt Count 175, MPV 13.1 H, Gran % 50.8, Lymph % (Auto) 36.3 H, [place] % (Auto) 11.5 H, Eos % (Auto) 1.1 L, Baso % (Auto) 0.3, Gran # 4.04 , Lymph # (Auto) 2.9, [place] # (Auto) 0.9 H, Eos # (Auto) 0.1, Baso # (Auto) 0.02 11/07/17 03:30: Urine HCG, Qual Negative - RAD Interpretation Radiology Orders: 11/07/17 04:16 ABDOMEN & PELVIS [ABD & PELVIS IV CONTRAST ONLY] [CT] Stat 11/07/17 05:12 TRANSVAGINAL [US] Stat - Medication Orders Current Medication Orders: Sodium Chloride (Sodium Chloride 0.9%) 1,000 mls @ 200 mls/hr IV .Q5H [facility] Last Admin: 11/07/17 04:32 Dose: 200 mls/hr eMAR Start Stop Document 11/07/17 04:32 RG (Rec: 11/07/17 04:36 [id number]) Intravenous Solution Start Date 11/07/17 Start Time 04:32 Discontinued Medications Metoclopramide HCl (Reglan) 10 mg IVP STAT STA Stop: 11/07/17 04:15 Last Admin: 11/07/17 04:31 Dose: 10 mg IVP Administration Document 11/07/17 04:31 RG (Rec: 11/07/17 04:[id number] Charges for Administration # of IVP Administrations 1 Morphine Sulfate (Morphine) 4 mg IVP STAT STA Stop: 11/07/17 04:47 Last Admin: 11/07/17 04:59 Dose: 4 mg MAR Pain Assessment Document 11/07/17 04:59 (Rec: 11/07/17 05:00 [id number]) Pain Reassessment Is this a pain reassessment? Yes Sleep Is patient sleeping during reassessment? No Presence of Pain Presence of Pain Yes Pain Scale Used Pain Scale Used Numeric Location Left, Right or Bilateral Bilateral Upper or Lower Lower Pain Location Body Site Abdomen Description Description Constant Intensity of Pain at present 10 Pain Behavior Crying IVP Administration Document 11/07/17 04:59 (Rec: 11/07/17 05:00 [id number] Charges for Administration # of IVP Administrations 1 Disposition/Present on Arrival - Present on Arrival Any Indicators Present on Arrival: No History of DVT/PE: No History of Uncontrolled Diabetes: No Urinary Catheter: No History of Decub. Ulcer: No History Surgical Site Infection Following: None - Disposition Have Diagnosis and Disposition been Completed?: Yes Diagnosis: Abdominal pain Disposition: HOME/ ROUTINE Disposition Time: 06:40 Patient Problems: Current Active Problems Problem Status Onset Abdominal pain Acute Condition: GOOD Discharge Instructions (ExitCare): Viral Gastroenteritis, Stomach Ache and Stomach Upset Additional Instructions: SOFI VEGA, thank you for letting us take care of you today. Your provider was Easton Cantrell and you were treated for ABD PAIN. The emergency medical care you received today was directed at your acute symptoms. If you were prescribed any medication, please fill it and take as directed. It may take several days for your symptoms to resolve. Return to the Emergency Department if your symptoms worsen, do not improve, or if you have any other problems. Please contact your doctor or call one of the physicians/clinics you have been referred to that are listed on the Patient Visit Information form that is included in your discharge packet. Bring any paperwork you were given at discharge with you along with any medications you are taking to your follow up visit. Our treatment cannot replace ongoing medical care by a primary care provider outside of the emergency department. Thank you for allowing the [facility] team to be part of your care today. If you had an X-Ray or CT scan: A Radiologist will review the ED reading if any change in treatment is needed we will contact you. If you had a blood, urine, or wound culture: It will take several days for the results, if any change in treatment is needed we will contact you. If you had an STI test: It will take 48 hours for the results. Please call after 1 week if you have not heard back. Referrals: FAMILY PROVIDER,NO [Primary Care Provider] - Follow up with primary Poonam Ordoñez MD [Medical Doctor] - Follow up with primary Dario Chew MD [Staff Provider] - Follow up with primary Forms: [employer] (Estonian)
[2017-11-07] MEDS ORDERED: Morphine 4 mg/ml ISec IVP STA (04:46)
[2017-11-07] MEDS ORDERED: Iohexol 350 MG/100 ML VIAL ONE (04:51)
[2017-11-07 04:58] VITALS: RESP 18; O2SAT 100
[2017-11-07 05:00] LABS: ALB/GLOB RATIO 1.2 (1.1-1.8); ALBUMIN 4.1 g/dL (3.0-4.8); ALT/SGPT 22 U/L (7-56); AST/SGOT 21 U/L (14-36); BLOOD UREA NITROGEN 16 mg/dL (7-21); CALCIUM 9.1 mg/dL (8.4-10.5); GFR NON-AFRICAN AMERICAN > 60; LIPASE 152 U/L (23-300)
[2017-11-07 05:11] LABS: HEMOGLOBIN 13.8 g/dL (12.0-16.0); MEAN CELL VOLUME 87.6 fl (80.0-105.0); RBC 4.69 10^6/uL (3.5-6.1); WHITE BLOOD COUNT 7.9 10^3/ul (4.5-11.0)
[2017-11-07 05:12] LABS: BASO # 0.02 K/mm3 (0.0-2.0); BASO % 0.3 % (0.0-3.0); EOS # 0.1 (0.0-0.7); EOS % 1.1 % (1.5-5.0); GRAN # 4.04 (1.4-6.5); GRAN % 50.8 % (50.0-68.0); LYMPH # 2.9 (1.2-3.4); LYMPH % 36.3 % (22.0-35.0); MEAN CORPUSCULAR HEMOGLOBIN 29.4 pg (25.0-35.0); MEAN CORPUSCULAR HGB CONC 33.6 g/dl (31.0-37.0); MEAN PLATELET VOLUME 13.1 fl (7.0-11.0); MONO # 0.9 (0.1-0.6); MONO % 11.5 % (1.0-6.0); RED CELL DISTRIBUTION WIDTH 13.3 % (11.5-14.5)
[2017-11-07 05:15] LABS: URINE BILIRUBIN NEGATIVE (NEGATIVE); URINE BLOOD TRACE-INTACT (NEGATIVE); URINE GLUCOSE (UA) NEGATIVE (NEGATIVE); URINE LEUKOCYTE ESTERASE NEGATIVE Leu/uL (NEGATIVE); URINE PROTEIN NEGATIVE mg/dL (<30 mg/dL); URINE UROBILINOGEN 0.2 E.U./dL (<1 E.U./dL)
[2017-11-07 05:51] LABS: URINE APPEARANCE CLEAR (CLEAR); URINE COLOR LIGHT YELLOW (YELLOW)
[2017-11-07 06:48] LABS: URINE BACTERIA FEW (NEG); URINE EPITHELIAL CELLS 0 - 2 /hpf (0-5); URINE RBC 0 - 2 /hpf (0-2); URINE WBC 0 - 2 /hpf (0-6)
[2017-11-07 07:05] VITALS: BP 120/62; PULSE 68; TEMP 97.8
--- NOTE | 2017-11-07 10:12 | CT ---
Date of service: 11/07/2017 PROCEDURE: CT Abdomen and Pelvis with contrast HISTORY: Diffuse abdominal pain COMPARISON: 03/01/2017. TECHNIQUE: CT scan of the abdomen and pelvis was performed after administration of intravenous contrast. Oral contrast was not administered. Coronal and sagittal reformatted images were obtained. Contrast dose: 100 mL Omnipaque 350 Radiation dose: Total exam DLP = 497.62 mGy-cm. This CT exam was performed using one or more of the following dose reduction techniques: Automated exposure control, adjustment of the mA and/or kV according to patient size, and/or use of iterative reconstruction technique. FINDINGS: LOWER THORAX: The visualized lungs are clear. LIVER: Normal in size with homogeneous enhancement. No gross lesion or ductal dilatation. GALLBLADDER AND BILE DUCTS: No calcified gallstones. PANCREAS: Normal in size with homogeneous enhancement. No gross lesion or ductal dilatation. SPLEEN: Normal in size and appearance. ADRENALS: No discrete nodule. KIDNEYS AND URETERS: Normal in size with homogeneous enhancement. No hydronephrosis. No solid mass. VASCULATURE: Unremarkable. No aortic aneurysm. BOWEL: Unremarkable. No obstruction. No gross mural thickening. APPENDIX: Normal appendix. PERITONEUM: No free fluid. No free air. LYMPH NODES: No enlarged lymph nodes. BLADDER: Unremarkable. REPRODUCTIVE: The uterus is normal in size. BONES: No acute fracture. OTHER FINDINGS: None. IMPRESSION: No acute findings. A preliminary report was provided by [employer].
--- NOTE | 2017-11-07 10:51 | US ---
Date of service: 11/07/2017 HISTORY: suprapubic abdominal pain COMPARISON: None available. TECHNIQUE: Transvaginal pelvic ultrasound was performed. FINDINGS: UTERUS: Measures 7.3 x 3.5 x 5.6 cm. Anteverted, normal in size and appearance. No fibroid or other mass lesion seen. ENDOMETRIUM: Measures 4.3 mm in diameter. Normal in appearance. CERVIX: No cervical abnormality identified. RIGHT OVARY: Measures 2.6 x 1.9 x 2.7 cm. No solid mass. Normal flow. LEFT OVARY: Measures 2.8 x 1.3 x 2.7 cm. No solid mass. Normal flow. FREE FLUID: Small amount of free fluid in the cul de sac is likely physiologic. OTHER FINDINGS: None. IMPRESSION: Unremarkable pelvic ultrasound. A preliminary report was provided by [employer] services.
== END 2017-11-07 07:06 | disposition home or self-care (01) ==
LOC: ED 03:09
DX: R10.9 Unspecified abdominal pain (principal)
CPT/HCPCS: 74177; 76830; 80053; 81001; 83690; 84703; 85025; 96374; 96375; 99285; J2270; J2765; J7030; Q9967

== ENCOUNTER 2018-03-01 22:13 | Emergency (ER) | payer MEDICAID ==
[2018-03-01 22:26] VITALS: BMI 30.2
[2018-03-01 22:31] VITALS: O2SAT 98
[2018-03-01] MEDS ORDERED: DiphenhydrAMINE 50 mg/ml Inj IVP ONE (23:15)
[2018-03-01] MEDS ORDERED: Sodium Chloride 0.9% 1,000 ML IV STA (23:15)
--- NOTE | 2018-03-01 23:16 | ED PDOC ---
Arrival/HPI - General Chief Complaint: GI Problem Time Seen by Provider: 03/01/18 22:29 Historian: Patient - History of Present Illness Narrative History of Present Illness (Text): 03/01/18 23:13 22 year old female, whose past medical history includes migraines, presents to the emergency department with a migraine headache, since today. Patient states she has some associated vomiting. Patient also informs of diarrhea and abd ominal discomfort. Patient states it feels like her usual migraine headache. Patient denies any fever, chills, neck pain, back pain, or any other complaints. Time/Duration: 24 hours Symptom Onset: Gradual Symptom Course: Unchanged Past Medical History - Provider Review Nursing Documentation Reviewed: Yes - Past History Past History: No Previous - Infectious Disease Hx of Infectious Diseases: None - Tetanus Immunization Tetanus Immunization: Unknown - Cardiac Hx Cardiac Disorders: No - Pulmonary Hx Asthma: Yes - Neurological Hx Neurological Disorder: Yes Hx Syncope: Yes - HEENT Hx HEENT Disorder: No - Renal Hx Renal Disorder: No - Endocrine/Metabolic Hx Endocrine Disorders: No - Hematological/Oncological Hx Blood Disorders: No - Integumentary Hx Dermatological Disorder: No - Musculoskeletal/Rheumatological Hx Musculoskeletal Disorders: Yes Hx Falls: Yes - Gastrointestinal Hx Gastrointestinal Disorders: No - Genitourinary/Gynecological Hx Genitourinary Disorders: No Other/Comment: [employer] doctors: Dr Anne/Dr Michel...last seen before her trip to [facility]. Benign Ovarian Cyst history - Psychiatric Hx Depression: No Hx Substance Use: No - Past Surgical History Past Surgical History: No Previous - Anesthesia Hx Anesthesia: No Hx Anesthesia Reactions: No - Suicidal Assessment Feels Threatened In Home Enviroment: No Family/Social History - Physician Review Nursing Documentation Reviewed: Yes Family/Social History: No Known Family HX Smoking Status: Never Smoked Hx Alcohol Use: No Hx Substance Use: No Hx Substance Use Treatment: No Allergies/Home Meds Allergies/Adverse Reactions: Allergies No Known Allergies Allergy (Verified 03/01/18 22:26) Review of Systems - Physician Review All systems were reviewed & negative as marked: Yes - Review of Systems Constitutional: absent: Fevers, Night Sweats Gastrointestinal: Abdominal Pain, Diarrhea, Vomiting Musculoskeletal: absent: Back Pain, Neck Pain Neurological: Headache Physical Exam Vital Signs Reviewed: Yes Vital Signs Temp Pulse Resp BP Pulse Ox 03/01/18 22:26 97.5 F L 77 18 117/76 98 Temperature: Afebrile Blood Pressure: Normal Pulse: Regular Respiratory Rate: Normal Appearance: Positive for: Well-Appearing, Non-Toxic, Comfortable Pain Distress: None Mental Status: Positive for: Alert and Oriented X 3 - Systems Exam Head: Present: Atraumatic, Normocephalic Pupils: Present: PERRL Extroacular Muscles: Present: EOMI Conjunctiva: Present: Normal Mouth: Present: Moist Mucous Membranes Neck: Present: Normal Range of Motion Respiratory/Chest: Present: Clear to Auscultation, Good Air Exchange. No: Respiratory Distress, Accessory Muscle Use Cardiovascular: Present: Regular Rate and Rhythm, Normal S1, S2. No: Murmurs Abdomen: Present: Normal Bowel Sounds. No: Tenderness, Distention, Peritoneal Signs, Guarding Back: Present: Normal Inspection Upper Extremity: Present: Normal Inspection. No: Cyanosis, Edema Lower Extremity: Present: Normal Inspection. No: Edema Neurological: Present: GCS=15, CN II-XII Intact, Speech Normal Skin: Present: Warm, Dry, Normal Color. No: Rashes Psychiatric: Present: Alert, Oriented x 3, Normal Insight, Normal Concentration Medical Decision Making ED Course and Treatment: 03/01/18 23:17 Impression: 22 year old female presents with migraine headache Plan: -- CMP, Lipase -- CBC -- Benadryl -- Pepcid -- Reglan -- Reassess and disposition Prior Visits: Notes and results from previous visits were reviewed. Progress Notes: - Scribe Statement The provider has reviewed the documentation as recorded by the Janet Wilcox Provider Scribe Attestation: All medical record entries made by the Janet were at my direction and personally dictated by me. I have reviewed the chart and agree that the record accurately reflects my personal performance of the history, physical exam, medical decision making, and the department course for this patient. I have also personally directed, reviewed, and agree with the discharge instructions and disposition. Disposition/Present on Arrival - Present on Arrival Any Indicators Present on Arrival: No History of DVT/PE: No History of Uncontrolled Diabetes: No Urinary Catheter: No History of Decub. Ulcer: No History Surgical Site Infection Following: None - Disposition Have Diagnosis and Disposition been Completed?: Yes Diagnosis: Migraine headache, Gastroenteritis Disposition: HOME/ ROUTINE Disposition Time: 01:50 Patient Plan: Discharge Patient Problems: Current Active Problems Problem Status Onset Gastroenteritis Acute Migraine headache Acute Condition: GOOD Discharge Instructions (ExitCare): Headache, Adult (DC), Gastroenteritis (ED) Additional Instructions: Take meds as prescribed/drink small amounts of liquids at a time/follow up with your doctor this week/any recurrent worsening symptoms return to the emergency room Prescriptions: Acetaminophen/Butalbital/Caf [Fioricet] 1 tab PO Q6 PRN #12 tab PRN Reason: Headache Ondansetron ODT [Zofran ODT] 4 mg PO Q6 PRN #8 odt PRN Reason: Nausea/Vomiting Referrals: Brenda Herrera MD [Primary Care Provider] - Follow up with primary Forms: [employer] (Kinyarwanda), WORK NOTE
[2018-03-02 00:04] LABS: HEMOGLOBIN 14.2 g/dL (12.0-16.0); MEAN CELL VOLUME 87.3 fl (80.0-105.0); MEAN CORPUSCULAR HGB CONC 34.4 g/dl (31.0-37.0); MEAN PLATELET VOLUME 11.6 fl (7.0-11.0); RBC 4.73 10^6/uL (3.5-6.1); RED CELL DISTRIBUTION WIDTH 12.9 % (11.5-14.5); WHITE BLOOD COUNT 12.8 10^3/uL (4.5-11.0)
[2018-03-02 00:08] LABS: ALB/GLOB RATIO 1.2 (1.1-1.8); ALBUMIN 4.1 g/dL (3.0-4.8); ALT/SGPT 38 U/L (7-56); AST/SGOT 25 U/L (14-36); BLOOD UREA NITROGEN 13 mg/dL (7-21); CALCIUM 8.7 mg/dL (8.4-10.5); GFR NON-AFRICAN AMERICAN > 60; LIPASE 142 U/L (23-300)
[2018-03-02 02:15] VITALS: BP 125/82; PULSE 78; RESP 17; TEMP 98.2
== END 2018-03-02 01:50 | disposition home or self-care (01) ==
LOC: ED 22:13
DX: G43.909 Migraine, unspecified, not intractable, without status migrainosus (principal); K52.9 Noninfective gastroenteritis and colitis, unspecified
CPT/HCPCS: 80053; 83690; 85027; 96374; 96375; 99284; J1200; J2765; J7030